=== PATIENT | female | born 1985 | race African-American/Black ===

== ENCOUNTER 2016-11-06 20:28 | Emergency (ER) | payer SELFPAY ==
[2016-11-06 20:47] VITALS: BP 111/69; PULSE 72; TEMP 99.1; BMI 36.6
--- NOTE | 2016-11-06 21:42 | PDOC ---
History of Present Illness - General Chief Complaint: Nausea/Vomiting Stated Complaint: PAIN /VOMITING Time Seen by Provider: 11/06/16 21:42 - History of Present Illness Initial Comments: 11/06/16 23:01 Patient is a 31-year-old female with a past medical history of gastritis who presents to the emergency department today complaining of nausea and vomiting since 8 AM this morning. Patient states that she felt nauseous early this morning and has not been able to stop throwing up since. She's not been able to keep any food or water down. She has not used any medication for pain. Denies fevers, chills. Admits to diarrhea. Denies chest pain, shortness of breath, frequency, urgency, hematuria, constipation, hematochezia, melena. Patient admits to occasional marijuana use with her last usage of last night. Patient states her last menstrual period was 3 weeks ago. Past History - Travel Traveled outside of the country in the last 30 days: No Close contact w/someone who was outside of country & ill: No - Past Medical History Allergies/Adverse Reactions: Allergies Allergy/AdvReac Type Severity Reaction Status Date / Time Penicillins Allergy Mild "SKIN Verified 11/06/16 20:45 PEELS". Home Medications: Ambulatory Orders Ondansetron [Zofran Odt -] 4 mg SL TID PRN #9 od.tablet 05/05/16 Suicide Attempt (Hx): No - Psycho/Social/Smoking Cessation Hx Anxiety: No Suicidal Ideation: No Smoking History: Never smoked Have you smoked in the past 12 months: No Hx Alcohol Use: Yes (binge drinking x 4 days earlier this week) Drug/Substance Use Hx: No Substance Use Type: None Hx Substance Use Treatment: No Review of Systems - Review of Systems Able to Perform ROS?: Yes Comments:: 11/06/16 23:53 CONSTITUTIONAL: Absent: fever, chills, diaphoresis, generalized weakness, malaise, loss of appetite HEENT: Absent: rhinorrhea, nasal congestion, throat pain, throat swelling, difficulty swallowing, mouth swelling, ear pain, eye pain, visual Changes CARDIOVASCULAR: Absent: chest pain, loss of consciousness, palpitations, irregular heart rate, peripheral edema RESPIRATORY: Absent: cough, shortness of breath, dyspnea with exertion, orthopnea, wheezing, stridor, hemoptysis GASTROINTESTINAL: Positive: diffuse abdominal pain, nausea, vomiting, diarrhea. Absent: abdominal distension, constipation, melena, hematochezia GENITOURINARY: Absent: dysuria, frequency, urgency, hesitancy, hematuria, flank pain, genital pain MUSCULOSKELETAL: Absent: myalgia, arthralgia, joint swelling SKIN: Absent: rash, itching, pallor HEMATOLOGIC/IMMUNOLOGIC: Absent: easy bleeding, easy bruising, lymphadenopathy, frequent infections ENDOCRINE: Absent: unexplained weight gain, unexplained weight loss, heat intolerance, cold intolerance NEUROLOGIC: Absent: headache, focal weakness or paresthesias, dizziness, unsteady gait, seizure, mental status changes, bladder or bowel incontinence PSYCHIATRIC: Absent: anxiety, depression, suicidal or homicidal ideation, hallucinations. Is the patient limited Barbadian proficient: No *Physical Exam - Vital Signs Last Vital Signs Temp Pulse Resp BP Pulse Ox 99.1 F 72 20 111/69 100 11/06/16 20:45 11/06/16 20:45 11/06/16 20:45 11/06/16 20:45 11/06/16 20:45 - Physical Exam Comments: 11/06/16 23:55 GENERAL: Well developed, well nourished. AAOx3. In mild distress, laying on exam bed c/o abd pain. NECK: Supple. Full ROM. No JVD. Carotid pulses 2+ and symmetric, without bruits. No thyromegaly. No lymphadenopathy. CARDIOVASCULAR: Regular rate and rhythm. No murmurs, rubs, or gallops. Distal pulses are 2+ and symmetric. PULMONARY: No evidence of respiratory distress. Lungs clear to auscultation bilaterally. No wheezing, rales or rhonchi. ABDOMINAL: Diffuse abdominal tenderness. Soft. Non-distended. No rebound or guarding. No organomegaly. Normoactive bowel sounds. MUSCULOSKELETAL Normal range of motion at all joints. No bony deformities or tenderness. No CVA tenderness. EXTREMITIES: No cyanosis. No clubbing. No edema. No calf tenderness. SKIN: Warm and dry. Normal capillary refill. No rashes. No jaundice. NEUROLOGICAL: Alert, awake, appropriate. Cranial nerves 2-12 intact. No deficits to light touch and temperature in face, upper extremities and lower extremities. No motor deficits in the in face, upper extremities and lower extremities. Normoreflexic in the upper and lower extremities. Normal speech. Toes are down- going bilaterally. Gait is normal without ataxia. PSYCHIATRIC: Cooperative. Good eye contact. Appropriate mood and affect. ED Treatment Course - LABORATORY CBC & Chemistry Diagram: 11/06/16 22:00 11/06/16 22:00 Medical Decision Making - Medical Decision Making 11/06/16 23:59 Patient is a 31-year-old female with a past medical history of gastritis who presents to the emergency department today complaining of nausea and vomiting since 8 AM this morning. Given her physical exam belly seems benign and most likely tender due to her constant vomiting since this morning. Differentials include gastritis, cyclic vomiting due to marijuana, gastroenteritis. 1.CBC, CMP, UA, UC, urine , U tox, lipase, PT/INR 2.IV fluids, ofirmev, IV Pepcid, IV Zofran 3.reevaluate 11/07/16 01:39 Patient is still complaining of pain. However urine is not back yet. Cannot prescribe anything stronger for pain until comes back. We'll prescribe Zofran for nausea as patient is still vomiting. 11/07/16 02:49 Urine is negative at this time. We will give 4 of IV morphine for continued pain. Patient is still vomiting we'll give one last dose of Zofran. Potassium is low at 3.4, will replete. Second bag of IV fluids Reevaluate 11/07/16 03:39 Patient appears to be resting comfortably at this time. 11/07/16 04:48 Patient states she feels much better at this time denies abdominal pain we'll by mouth trial at this time. 11/07/16 05:56 Patient tolerates by mouth trial. Did not vomit or c/o nausea/abd pain. We will discharge home at this time. Patient is to take Zantac twice a day for the next week to help with her symptoms. She was also counseled to avoid marijuana. She' s drink plenty of fluids and eat a bland diet. Patient understands all discharge instructions and all questions were answered at this time. *DC/Admit/Observation/Transfer Diagnosis at time of Disposition: Gastritis Qualifiers: Gastritis type: unspecified gastritis Chronicity: acute Gastritis bleeding: without bleeding Qualified Code(s): K29.00 - Acute gastritis without bleeding - Discharge Dispostion Admit: No - Referrals Referrals: Kwabena Owen MD [Staff Physician] - - Patient Instructions Printed Discharge Instructions: DI for Vomiting -- Adult, DI for Gastritis Additional Instructions: You had an episode of vomiting tonight most likely due to gastritis. Take Zantac twice a day for the next week. This medication is over the counter. Drink plenty of fluids and eat a bland diet for the next 48 hours or until your symptoms resolve. Avoid marijuana as this can cause nausea and vomiting. Follow up with your primary care doctor in the next week. Return to the ED if you have worsening vomiting, nausea, fevers, chills, or any changes in your symptoms. - Post Discharge Activity Work/School Note: Back to Work
[2016-11-06] MEDS ORDERED: ONDANSETRON 4 MG/2 ML VIAL IVPUSH ONE ×2 (21:59→23:58)
[2016-11-06] MEDS ORDERED: SODIUM CHLORIDE 1,000 ML IV STA (21:59)
[2016-11-06] MEDS ORDERED: KETOROLAC TROMETHAMINE 30 MG/1 ML VIAL IVPUSH ONE (22:00)
[2016-11-06] MEDS ORDERED: FAMOTIDINE 20 MG/50 ML IVPB 50 ML IVPB ONE ×2 (22:00→22:29)
[2016-11-06 22:26] LABS: BASOPHIL 0.3 % (0-2.0); MCHC 33.2 g/dl (32.0-36.0); MEAN CELL VOLUME 93.3 fl (80-96); MEAN PLT VOLUME 6.5 fl (7.5-11.1); NEUTROPHILS 91.7 % (42.8-82.8); PLATELET COUNT 313 K/MM3 (134-434); RDW 13.4 % (11.6-15.6); WHITE BLOOD COUNT 10.6 K/mm3 (4.0-10.0)
[2016-11-06] MEDS ORDERED: ONDANSETRON 4 MG/2 ML VIAL ONE (22:29)
[2016-11-06] MEDS ORDERED: KETOROLAC TROMETHAMINE 30 MG/1 ML VIAL ONE (22:29)
[2016-11-06 22:44] LABS: INR 1.18 (0.82-1.09)
[2016-11-06 22:58] LABS: ALBUMIN 4.6 g/dl (3.4-5.0); ALK PHOS 93 U/L (45-117); ANION GAP 11 (8-16); BILIRUBIN,TOTAL 0.3 mg/dL (0.2-1.0); CALCIUM 9.8 mg/dL (8.5-10.1); CO2 23 mmol/L (21-32); CREATININE 0.8 mg/dL (0.55-1.02); GLUCOSE,RANDOM 134 mg/dL (74-106); SGOT/AST 16 U/L (15-37); SGPT/ALT 22 U/L (12-78); TOT PROT 7.7 g/dl (6.4-8.2)
[2016-11-06 23:19] LABS: URINE APPEARANCE CLOUDY; URINE BILIRUBIN NEGATIVE (NEGATIVE); URINE BLOOD NEGATIVE (NEGATIVE); URINE COLOR YELLOW; URINE GLUCOSE (UA) NEGATIVE (NEGATIVE); URINE KETONE 1+ (NEGATIVE); URINE NITRITE NEGATIVE (NEGATIVE); URINE UROBILINOGEN NEGATIVE mg/dL (0.2-1.0)
[2016-11-06] MEDS ORDERED: ACETAMINOPHEN 1000 MG/100 ML VIAL (NON FORMULARY) IVPB ONE (23:57)
[2016-11-06 23:58] LABS: URINE LEUK ESTERASE 1+ (NEGATIVE); URINE PROTEIN 2+ (NEGATIVE)
[2016-11-07] MEDS ORDERED: ACETAMINOPHEN INJECTION 100 ML IVPB ONE (00:33)
[2016-11-07] MEDS ORDERED: ONDANSETRON 4 MG/2 ML VIAL ONE (00:34)
[2016-11-07 00:50] LABS: URINE MARIJUANA THC POSITIVE ng/ml (CUTOFF=50)
--- NOTE | 2016-11-07 01:24 | PDOC ---
*Physical Exam - Vital Signs Last Vital Signs Temp Pulse Resp BP Pulse Ox 99.1 F 72 20 111/69 100 11/06/16 20:45 11/06/16 20:45 11/06/16 20:45 11/06/16 20:45 11/06/16 20:45 ED Treatment Course - LABORATORY CBC & Chemistry Diagram: 11/06/16 22:00 11/06/16 22:00 - ADDITIONAL ORDERS Additional order review: Laboratory Results 11/07/16 11/06/16 11/06/16 00:20 23:00 22:00 INR Sodium Potassium Chloride Carbon Dioxide Anion Gap BUN Creatinine Creat Clearance w eGFR Random Glucose Calcium Total Bilirubin AST ALT Alkaline Phosphatase Total Protein Albumin Lipase 244 Urine Color Yellow Urine Appearance Cloudy Urine pH 8.0 Urine Protein 2+ H Urine Glucose (UA) Negative Urine Ketones 1+ H Urine Blood Negative Urine Nitrite Negative Urine Bilirubin Negative Urine Urobilinogen Negative Ur Leukocyte Esterase 1+ H Opiates Screen Negative Methadone Screen Negative Barbiturate Screen Negative Phencyclidine Screen Negative Ur Amphetamines Screen Negative MDMA (Ecstasy) Screen Negative Benzodiazepines Screen Negative Cocaine Screen Negative U Marijuana (THC) Screen Positive 11/06/16 11/06/16 22:00 22:00 INR 1.18 H Sodium 142 Potassium 3.4 L Chloride 108 H Carbon Dioxide 23 Anion Gap 11 BUN 8 Creatinine 0.8 Creat Clearance w eGFR > 60 Random Glucose 134 H Calcium 9.8 Total Bilirubin 0.3 AST 16 D ALT 22 Alkaline Phosphatase 93 Total Protein 7.7 Albumin 4.6 Lipase Urine Color Urine Appearance Urine pH Urine Protein Urine Glucose (UA) Urine Ketones Urine Blood Urine Nitrite Urine Bilirubin Urine Urobilinogen Ur Leukocyte Esterase Opiates Screen Methadone Screen Barbiturate Screen Phencyclidine Screen Ur Amphetamines Screen MDMA (Ecstasy) Screen Benzodiazepines Screen Cocaine Screen U Marijuana (THC) Screen 11/06/16 22:00 RBC 4.17 MCV 93.3 MCHC 33.2 RDW 13.4 MPV 6.5 L Neutrophils % 91.7 H Lymphocytes % 5.2 L D Monocytes % 2.8 L Eosinophils % 0.0 D Basophils % 0.3 - Medications Given in the ED: ED Medications Discontinued Medications Generic Name Dose Route Start Last Admin Trade Name Freq PRN Reason Stop Dose Admin Acetaminophen 1,000 mg 11/06/16 23:57 11/07/16 00:39 Ofirmev Injection - IVPB 11/06/16 23:58 1,000 mg ONCE ONE Administration Famotidine/Sodium Chloride 50 mls @ 100 mls/hr 11/06/16 22:00 11/06/16 23:09 Pepcid 20 Mg Premixed Ivpb - IVPB 11/06/16 22:29 100 mls/hr ONCE ONE Administration Sodium Chloride 1,000 mls @ 1,000 mls/hr 11/06/16 21:59 11/06/16 23:09 Normal Saline - IV 11/06/16 22:58 1,000 mls/hr ASDIR STA Administration Ketorolac Tromethamine 30 mg 11/06/16 22:00 11/06/16 23:09 Toradol Injection - IVPUSH 11/06/16 22:01 30 mg ONCE ONE Administration Ondansetron HCl 4 mg 11/06/16 21:59 11/06/16 23:09 Zofran Injection IVPUSH 11/06/16 22:00 4 mg ONCE ONE Administration Ondansetron HCl 4 mg 11/06/16 23:58 11/07/16 00:39 Zofran Injection IVPUSH 11/06/16 23:59 4 mg ONCE ONE Administration Medical Decision Making - Medical Decision Making 11/07/16 01:23 agree with care from TOÑA Jerez *DC/Admit/Observation/Transfer Diagnosis at time of Disposition: Gastritis - Referrals Referrals: Kwabena Owen MD [Staff Physician] - - Patient Instructions Printed Discharge Instructions: DI for Gastritis, DI for Vomiting -- Adult Additional Instructions: You had an episode of vomiting tonight most likely due to gastritis. Take Zantac twice a day for the next week. This medication is over the counter. Drink plenty of fluids and eat a bland diet for the next 48 hours or until your symptoms resolve. Avoid marijuana as this can cause nausea and vomiting. Follow up with your primary care doctor in the next week. Return to the ED if you have worsening vomiting, nausea, fevers, chills, or any changes in your symptoms. - Post Discharge Activity Work/School Note: Back to Work
[2016-11-07] MEDS ORDERED: morphine CARPU-JECT 4 MG/1 ML DISP.SYRIN IVPUSH ONE (01:54)
[2016-11-07] MEDS ORDERED: POTASSIUM CHLORIDE 20 MEQ PREMIX IVPB 100 ML IVPB ONE (01:54)
[2016-11-07 02:24] LABS: URINE BACTERIA RARE /hpf (NONE SEEN); URINE MUCUS MANY; URINE RBC 8 /hpf (0-3); URINE WBC 4 /hpf (3-5)
[2016-11-07] MEDS ORDERED: KCL 10 MEQ IVPB 200 ML IVPB ONE (02:35)
[2016-11-07] MEDS ORDERED: morphine CARPU-JECT 4 MG/1 ML DISP.SYRIN ONE (02:35)
== END 2016-11-07 06:04 | disposition home or self-care (01) ==
LOC: JER 20:28
PROC: 3E033GC Introduction of Other Therapeutic Substance into Peripheral Vein, Percutaneous Approach (ICD-10-PCS; principal; 2016-11-06)
PROC: 3E033NZ Introduction of Analgesics, Hypnotics, Sedatives into Peripheral Vein, Percutaneous Approach (ICD-10-PCS; 2016-11-06)
PROC: 3E033NZ Introduction of Analgesics, Hypnotics, Sedatives into Peripheral Vein, Percutaneous Approach (ICD-10-PCS; 2016-11-06)
PROC: 3E033GC Introduction of Other Therapeutic Substance into Peripheral Vein, Percutaneous Approach (ICD-10-PCS; 2016-11-06)
PROC: 3E0333Z Introduction of Anti-inflammatory into Peripheral Vein, Percutaneous Approach (ICD-10-PCS; 2016-11-06)
PROC: 3E0337Z Introduction of Electrolytic and Water Balance Substance into Peripheral Vein, Percutaneous Approach (ICD-10-PCS; 2016-11-06)
DX: K29.00 Acute gastritis without bleeding (principal); F12.10 Cannabis abuse, uncomplicated
CPT/HCPCS: 36415; 80053; 80307; 81003; 81015; 83690; 84703; 85025; 85610; 87086; 99283-25

== ENCOUNTER 2017-12-04 16:56 | Emergency (ER) | payer SELFPAY ==
--- NOTE | 2017-12-04 17:04 | PDOC ---
Rapid Medical Evaluation Time Seen by Provider: 12/04/17 17:02 Medical Evaluation: Allergies Allergy/AdvReac Type Severity Reaction Status Date / Time Penicillins Allergy Mild "SKIN Verified 12/04/17 17:02 SEAN". I have performed a brief in-person evaluation of this patient. The patient presents with a chief complaint of: 4 weeks vaginal bleeding today Pertinent physical exam findings: none I have ordered the following: labs, UA/culture, transvaginal ultrasound The patient will proceed to the ED for further evaluation. Discharge Disposition - Diagnosis Vaginal bleeding affecting early - Referrals - Patient Instructions - Post Discharge Activity
[2017-12-04 17:07] VITALS: BMI 34.7
[2017-12-04 17:52] LABS: BASO % 0.8 % (0-2.0); EOS % 0.9 % (0-4.5); HEMATOCRIT 36.4 % (32.4-45.2); HEMOGLOBIN 12.4 GM/dL (10.7-15.3); LYMPH % 28.2 % (8-40); MCHC 34.1 g/dl (32.0-36.0); MEAN CELL VOLUME 96.6 fl (80-96); MEAN PLT VOLUME 6.6 fl (7.5-11.1); MONO % 8.4 % (3.8-10.2); NEUT % 61.7 % (42.8-82.8); PLATELET COUNT 276 K/MM3 (134-434); RBC 3.77 M/mm3 (3.60-5.2); RDW 13.2 % (11.6-15.6)
[2017-12-04 18:08] LABS: URINE APPEARANCE CLOUDY; URINE BILIRUBIN NEGATIVE (<2.0 mg/dL); URINE COLOR RED; URINE GLUCOSE (UA) NEGATIVE (NEGATIVE); URINE KETONE NEGATIVE (NEGATIVE); URINE LEUK ESTERASE NEGATIVE (NEGATIVE); URINE NITRITE NEGATIVE (NEGATIVE); URINE UROBILINOGEN NEGATIVE mg/dL (0.2-1.0)
[2017-12-04 18:14] LABS: ALBUMIN 4.1 g/dl (3.4-5.0); ANION GAP 9 MMOL/L (8-16); BILIRUBIN,TOTAL 0.3 mg/dL (0.2-1.0); BLOOD UREA NITROGEN 5 mg/dL (7-18); CALCIUM 8.8 mg/dL (8.5-10.1); CHLORIDE 108 mmol/L (98-107); CO2 24 mmol/L (21-32); CREATININE 0.6 mg/dL (0.55-1.02); GLUCOSE,RANDOM 80 mg/dL (74-106); POTASSIUM 3.7 mmol/L (3.5-5.1); SGOT/AST 14 U/L (15-37); SGPT/ALT 22 U/L (12-78); SODIUM 141 mmol/L (136-145); TOT PROT 6.8 g/dl (6.4-8.2)
[2017-12-04 18:15] LABS: ALK PHOS 72 U/L (45-117)
[2017-12-04 18:20] LABS: URINE PROTEIN 2+ (NEGATIVE)
[2017-12-04 18:22] LABS: EPI CELLS RARE /HPF (FEW)
[2017-12-04 18:27] LABS: HCG,QUALITATIVE URINE Positive
--- NOTE | 2017-12-04 19:33 | PDOC ---
Attending Attestation - HPI HPI: 12/04/17 20:38 The patient is a 32-year-old female (4-5 weeks , ) with significant past medical history of gastritis, who presents to the emergency department today complaining of moderate bright red vaginal bleeding and associated lower abdominal cramping. Denies urinary/bowel changes. Denies fever, chills, nausea, vomiting, diarrhea, constipation. Denies headache, dizziness. Denies shortness of breath, back pain, chest pain. Allergies: penicillins Social history: none reported Surgical history: back abscess Family history: none reported PCP: unknown - Physicial Exam PE: 12/04/17 20:40 Vitals: Triage vital signs reviewed General Appearance: No acute distress, well nourished, well developed Head: Atraumatic Neck: Supple; No nuchal rigidity Chest Wall: Nontender Cardiac: Regular rate and rhythm, no murmurs, no rubs, no gallops Lungs: Clear to auscultation bilateral, good air movement bilaterally Abdomen: Soft, nondistended, normal bowel sounds, nontender to palpation Rectal: Exam deferred Extremities: Full range of motion to all extremities, no cyanosis, clubbing, or edema Skin: Warm and dry, no rashes or lesions, no rash, no petechiae Psych: Normal mood, normal affect <Viviana Mauricio - Last Filed: 12/04/17 23:17> - Resident Resident Name: Marielos Ogden - ED Attending Attestation I have performed the following: I have examined & evaluated the patient, The case was reviewed & discussed with the resident, I agree w/resident's findings & plan, Exceptions are as noted - Medical Decision Making 12/05/17 01:22 4 weeks . Undetectable IUP on ultrasound very low beta hCG differential diagnosis includes early miscarriage versus very early possible ectopic given no significant abdominal pain low suspicion for ectopic however patient advised return to ED or follow-up with [facility] for repeat beta and ultrasound in 2 days Very strict return instructions return instructions discussed with patient <Quentin Knox - Last Filed: 12/05/17 01:22> Attestations - Attestations 12/04/17 20:41 Documentation prepared by Viviana Mauricio, acting as medical esthetician for Quentin Knox MD. <Viviana Mauricio - Last Filed: 12/04/17 23:17> ED Treatment Course - LABORATORY CBC & Chemistry Diagram: 12/04/17 17:40 12/04/17 17:40 - ADDITIONAL ORDERS Additional order review: Laboratory Results 12/04/17 12/04/17 12/04/17 18:00 17:40 17:40 Sodium Potassium Chloride Carbon Dioxide Anion Gap BUN Creatinine Creat Clearance w eGFR Random Glucose Calcium Total Bilirubin AST ALT Alkaline Phosphatase Total Protein Albumin Beta HCG, Quant 143.0 Urine Color Red Urine Appearance Cloudy Urine pH 6.0 Ur Specific [place] 1.012 Urine Protein 2+ H Urine Glucose (UA) Negative Urine Ketones Negative Urine Blood 3+ H Urine Nitrite Negative Urine Bilirubin Negative Urine Urobilinogen Negative Ur Leukocyte Esterase Negative Urine WBC (Auto) 336 Urine RBC (Auto) 5042 Ur Epithelial Cells Rare Urine HCG, Qual Positive Blood Type AB POSITIVE Antibody Screen Negative 12/04/17 17:40 Sodium 141 Potassium 3.7 Chloride 108 H Carbon Dioxide 24 Anion Gap 9 BUN 5 L Creatinine 0.6 Creat Clearance w eGFR > 60 Random Glucose 80 Calcium 8.8 Total Bilirubin 0.3 AST 14 L ALT 22 Alkaline Phosphatase 72 D Total Protein 6.8 Albumin 4.1 Beta HCG, Quant Urine Color Urine Appearance Urine pH Ur Specific [place] Urine Protein Urine Glucose (UA) Urine Ketones Urine Blood Urine Nitrite Urine Bilirubin Urine Urobilinogen Ur Leukocyte Esterase Urine WBC (Auto) Urine RBC (Auto) Ur Epithelial Cells Urine HCG, Qual Blood Type Antibody Screen 12/04/17 17:40 RBC 3.77 MCV 96.6 H MCHC 34.1 RDW 13.2 MPV 6.6 L Neutrophils % 61.7 D Lymphocytes % 28.2 D Monocytes % 8.4 Eosinophils % 0.9 D Basophils % 0.8 - RADIOLOGY Radiograph Interpretation: 12/04/17 23:17 Transvaginal ultrasound was reviewed by Dr. Knox and overread by Radiology. Impression: No intrauterine gestational sac is identified. Endometrial stripe measures 1 cm in thickness with heterogeneous echotexture and vascular flow. Please correlate clinically and correlate with beta hCG levels as well as close follow-up ultrasound is needed to rule early versus missed in view of the clinical history. Right ovarian simple cyst/corpus luteum cyst measuring 2. 2 x 2 CM <Viviana Mauricio - Last Filed: 12/04/17 23:17> - LABORATORY CBC & Chemistry Diagram: 12/04/17 17:40 12/04/17 17:40 <Quentin Knox - Last Filed: 12/05/17 01:22>
--- NOTE | 2017-12-04 20:30 | PDOC ---
History of Present Illness - General Chief Complaint: Vaginal Bleeding Stated Complaint: VAGINAL BLEEDING Time Seen by Provider: 12/04/17 17:02 History Source: Patient Exam Limitations: No Limitations - History of Present Illness Initial Comments: Pt, with PMH of gastritis (treated with OTC antacid), presents with vaginal spotting since this morning. Pt went on multiple interviews today, and when she returned home around 5 pm, she noticed heavy vaginal bleeding and passage of a large clot. The passage of clot was associated with mild lower abdominal cramping. She has bled through about 1 pad every 2 hours. Her LMP was ~October 29- (~5 weeks by approximation). She has never been before. She denies any fevers or chills, foul-smelling or unusual vaginal discharge. She is currently having vaginal bleeding, but only complains of mild abdominal pain. 12/05/17 00:39 12/05/17 16:16 Past History - Travel Traveled outside of the country in the last 30 days: No Close contact w/someone who was outside of country & ill: No - Past Medical History Allergies/Adverse Reactions: Allergies Allergy/AdvReac Type Severity Reaction Status Date / Time Penicillins Allergy Mild "SKIN Verified 12/04/17 17:02 PEELS". Home Medications: Ambulatory Orders Nitrofurantoin Monohyd/M-Cryst [Macrobid -] 100 mg PO BID 5 Days #10 capsule CVA: No COPD: No DVT: No GI Disorders: Yes (GASTRITIS) - Reproductive History LMP comment: ~October 29-"early 20s" LMP Normal: Yes Is Patient Now?: Yes (#): 1 Para: 0 Therapeutic (s) & number: No Spontaneous : 0 - Suicide/Smoking/Psychosocial Hx Smoking History: Never smoked Have you smoked in the past 12 months: No Information on smoking cessation initiated: No Hx Alcohol Use: No Drug/Substance Use Hx: No Substance Use Type: None Hx Substance Use Treatment: No Review of Systems - Review of Systems Able to Perform ROS?: Yes Is the patient limited Kyrgyz proficient: No Constitutional: Yes: Weight Stable. No: Chills, Diaphoresis, Fever, Loss of Appetite, Weakness HEENTM: No: Recent change in vision, Nose Congestion, Throat Pain, Difficulty Swallowing Respiratory: No: Cough, Orthopnea, Shortness of Breath, Wheezing Cardiac (ROS): No: Chest Pain, Edema, Irregular Heart Rate, Lightheadedness, Palpitations, Syncope, Chest Tightness ABD/GI: Yes: Abdominal cramping (abdominal cramping and pain with passage of clot). No: Blood Streaked Bowels, Constipated, Diarrhea, Difficulty Swallowing , Nausea, Poor Appetite, Poor Fluid Intake, Vomiting : No: Burning, Dysuria, Discharge, Frequency, Flank Pain, Hematuria, Incontinence, Pain, Urgency Musculoskeletal: No: Back Pain, Joint Pain, Muscle Pain, Muscle Weakness Integumentary: No: Erythema, Pruritus, Rash Neurological: No: Headache, Numbness, Paresthesia, Seizure, Weakness, Unsteady Gait, Ataxia, Dizziness Psychiatric: No: Sleep Pattern Change, Change in Appetite Endocrine: No: Increased Urine, Change in Weight Hematologic/Lymphatic: Yes: Blood Clots (passage of vaginal clots). No: Anemia , Easy Bleeding All Other Systems: Reviewed and Negative *Physical Exam - Vital Signs Last Vital Signs Temp Pulse Resp BP Pulse Ox 98.3 F 75 18 118/75 100 12/04/17 17:03 12/04/17 17:03 12/04/17 17:03 12/04/17 17:03 12/04/17 17:03 - Physical Exam General Appearance: Yes: Nourished, Appropriately Dressed. No: Apparent Distress HEENT: positive: EOMI, FABRICIO, Normal ENT Inspection, Normal Voice, Pharynx Normal , Hearing Grossly Normal. negative: Scleral Icterus (R), Scleral Icterus (L), Pharyngeal Erythema, Tonsillar Exudate, Tonsillar Erythema, Rhinorrhea Neck: positive: Trachea midline, Normal Thyroid, Supple. negative: Tender, Rigid, Stridor, Lymphadenopathy (R), Lymphadenopathy (L) Respiratory/Chest: positive: Lungs Clear, Normal Breath Sounds. negative: Chest Tender, Respiratory Distress, Accessory Muscle Use Cardiovascular: positive: Regular Rhythm, Regular Rate, S1, S2. negative: Edema , JVD, Murmur Vascular Pulses: Carotid (R): 4+, Carotid (L): 4+ Female Pelvic Exam: positive: normal external exam, vaginal bleeding (heavy vaginal bleeding with passage of small clots. Was unable to visualize cervical os due to bleeding in the vaginal canal. Dark red blood.). negative: CMT, discharge, Bartholin mass, adnexal tenderness Gastrointestinal/Abdominal: positive: Normal Bowel Sounds, Tender (mild suprapubic tenderness to palpation. No rebound, no guarding. ), Flat (fundal height not yet palpated. below level of umbilicus. ), Soft. negative: Organomegaly, Pulsatile Mass, Distended, Guarding, Rebound Rectal Exam: positive: deferred Lymphatic: negative: Adenopathy, Tenderness Musculoskeletal: positive: Normal Inspection. negative: CVA Tenderness Extremity: positive: Normal Capillary Refill, Normal Inspection, Normal Range of Motion, Pelvis Stable. negative: Tender, Delayed Capillary Refill, Pedal Edema, Calf Tenderness Integumentary: positive: Normal Color, Dry, Warm. 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 NML intact, Fully Oriented, Alert, Normal Mood/ Affect, Normal Response, Motor Strength 08/16 ED Treatment Course - LABORATORY CBC & Chemistry Diagram: 12/04/17 17:40 12/04/17 17:40 - ADDITIONAL ORDERS Additional order review: Laboratory Results 12/04/17 12/04/17 12/04/17 18:00 17:40 17:40 Sodium Potassium Chloride Carbon Dioxide Anion Gap BUN Creatinine Creat Clearance w eGFR Random Glucose Calcium Total Bilirubin AST ALT Alkaline Phosphatase Total Protein Albumin Beta HCG, Quant 143.0 Urine Color Red Urine Appearance Cloudy Urine pH 6.0 Ur Specific [place] 1.012 Urine Protein 2+ H Urine Glucose (UA) Negative Urine Ketones Negative Urine Blood 3+ H Urine Nitrite Negative Urine Bilirubin Negative Urine Urobilinogen Negative Ur Leukocyte Esterase Negative Urine WBC (Auto) 336 Urine RBC (Auto) 5042 Ur Epithelial Cells Rare Urine HCG, Qual Positive Blood Type AB POSITIVE Antibody Screen Negative 12/04/17 17:40 Sodium 141 Potassium 3.7 Chloride 108 H Carbon Dioxide 24 Anion Gap 9 BUN 5 L Creatinine 0.6 Creat Clearance w eGFR > 60 Random Glucose 80 Calcium 8.8 Total Bilirubin 0.3 AST 14 L ALT 22 Alkaline Phosphatase 72 D Total Protein 6.8 Albumin 4.1 Beta HCG, Quant Urine Color Urine Appearance Urine pH Ur Specific [place] Urine Protein Urine Glucose (UA) Urine Ketones Urine Blood Urine Nitrite Urine Bilirubin Urine Urobilinogen Ur Leukocyte Esterase Urine WBC (Auto) Urine RBC (Auto) Ur Epithelial Cells Urine HCG, Qual Blood Type Antibody Screen 12/04/17 17:40 RBC 3.77 MCV 96.6 H MCHC 34.1 RDW 13.2 MPV 6.6 L Neutrophils % 61.7 D Lymphocytes % 28.2 D Monocytes % 8.4 Eosinophils % 0.9 D Basophils % 0.8 Medical Decision Making - Medical Decision Making [id number] US/TRANSVAGINAL US PREG 4 weeks . Heavy vaginal bleeding with clots. Pelvis ultrasound, transvesical and transvaginal LMP is unknown. The uterus measures 8.6 x 4.5 cm in sagittal and AP dimension. Endometrial stripe measures 10 mm in thickness. No intrauterine gestational sac is identified. Right ovary measures 4.5 x 2.2 cm with a simple cyst/corpus luteum cyst measuring 2.2 x 2 cm. Duplex evaluation of both ovaries demonstrates vascular flow, likely venous. No definite arterial flow could be documented. There is no free fluid in the cul-de-sac. Impression: No intrauterine gestational sac is identified. Endometrial stripe measures 1 cm in thickness with heterogeneous echotexture and vascular flow. Please correlate clinically and correlate with beta hCG levels as well as close follow-up ultrasound is needed to rule early versus missed in view of the clinical history. Right ovarian simple cyst/corpus luteum cyst measuring 2. 2 x 2 CM 12/04/17 19:50 (entered later) Pt seen at bedside, also seen by Dr. Knox. US did not visualize any intrauterine sac. Beta-hcg (143) very low considering LMP. Cervical os could not be visualized during exam due to vaginal bleeding. Pt also had mild suprapubic pain and cramping. Likely miscarriage vs early ectopic vs early with vaginal bleeding. UA showed WBC, leuk esterase and nitrite negative, not contaminated. Sent Macrobid 100 mg PO BID x5 days to treat UTI. Pt provided strict return precautions and provided referral for OB follow-up within 2 days to trend beta levels. Provided pt a copy of her US to take to her appointment. 12/04/17 20:30 12/05/17 16:48 *DC/Admit/Observation/Transfer Diagnosis at time of Disposition: Vaginal bleeding affecting early - Discharge Dispostion Disposition: HOME Condition at time of disposition: Stable Decision to Admit order: No - Prescriptions Prescriptions: Nitrofurantoin Monohyd/M-Cryst [Macrobid -] 100 mg PO BID 5 Days #10 capsule - Referrals Referrals: Alex Long MD [Staff Physician] - - Patient Instructions Printed Discharge Instructions: DI for Vaginal Bleeding During Additional Instructions: You were seen in the ER today for vaginal bleeding. The Ultrasound did not yet show any intrauterine . It is too early to tell whether you have had a miscarriage or if it too early to see a . The beta-hcg level today was 143. Please follow-up with your OB doctor tomorrow to make an appointment. We will have to follow your beta-hcg levels to determine if you are currently . Please return if you have worsening abdominal pain or worsening bleeding, any passing out, develop fevers or chills, or any other concerns. - Post Discharge Activity
[2017-12-04 20:52] VITALS: BP 122/79; PULSE 90; TEMP 99.4
== END 2017-12-04 20:52 | disposition home or self-care (01) ==
LOC: JER 16:56
DX: O26.891 Other specified pregnancy related conditions, first trimester (principal); O20.8 Other hemorrhage in early pregnancy; O34.81 Maternal care for other abnormalities of pelvic organs, first trimester; N83.11 Corpus luteum cyst of right ovary; Z3A.01 Less than 8 weeks gestation of pregnancy
CPT/HCPCS: 36415; 76817-TC; 80053; 81003; 81015; 84702; 84703; 85025; 86850; 86900; 86901; 87086; 99283-25

== ENCOUNTER 2018-04-15 18:49 | Emergency (ER) | payer BC ==
[2018-04-15] MEDS ORDERED: ACETAMINOPHEN 500 MG TABLET (FP) PO ONE (19:03)
--- NOTE | 2018-04-15 19:03 | PDOC ---
Rapid Medical Evaluation Time Seen by Provider: 04/15/18 19:00 Medical Evaluation: Allergies Allergy/AdvReac Type Severity Reaction Status Date / Time Penicillins Allergy Mild "SKIN Verified 12/04/17 17:02 PEELS". 04/15/18 19:00 I have performed a brief in-person evaluation of this patient. The patient presents with a chief complaint of: atraumatic upper back pain Pertinent physical exam findings: 8wks by dates. Upper back TTP at insertion point of right trapezius. I have ordered the following: tylenol The patient will proceed to the ED for further evaluation. Discharge Disposition - Diagnosis Upper back pain on right side - Referrals - Patient Instructions - Post Discharge Activity
[2018-04-15 19:05] VITALS: BP 120/74; PULSE 80; TEMP 98.3; BMI 36.6
[2018-04-15] MEDS ORDERED: ACETAMINOPHEN 325 MG TABLET (FP) ONE (21:28)
--- NOTE | 2018-04-15 21:47 | PDOC ---
History of Present Illness - General Chief Complaint: Pain, Acute Stated Complaint: NECK/BACK PAIN/8 WKS Time Seen by Provider: 04/15/18 19:00 - History of Present Illness Initial Comments: 04/15/18 21:41 32-year-old female 2 months presents for evaluation of bilateral shoulder pain and neck pain 2 days without systemic symptoms. Past History - Past Medical History Allergies/Adverse Reactions: Allergies Allergy/AdvReac Type Severity Reaction Status Date / Time Penicillins Allergy Mild "SKIN Verified 12/04/17 17:02 PEELS". Home Medications: Ambulatory Orders NK [No Known Home Medication] 04/15/18 CVA: No COPD: No DVT: No GI Disorders: Yes (GASTRITIS) - Reproductive History (#): 1 Para: 0 Therapeutic (s) & number: No Spontaneous : 0 - Suicide/Smoking/Psychosocial Hx Smoking History: Never smoked Have you smoked in the past 12 months: No Information on smoking cessation initiated: No Hx Alcohol Use: No Drug/Substance Use Hx: Yes (MARIJUANA) Substance Use Type: None Hx Substance Use Treatment: No Review of Systems - Review of Systems Musculoskeletal: Yes: Neck Pain *Physical Exam - Vital Signs Last Vital Signs Temp Pulse Resp BP Pulse Ox 98.3 F 80 16 120/74 100 04/15/18 19:01 04/15/18 19:01 04/15/18 19:01 04/15/18 19:01 04/15/18 19:01 - Physical Exam Comments: 04/15/18 21:42 Cervical spine skin color temperature are normal range of motion is limited. There is tenderness at bilateral paracervical musculature moderate tenderness bilateral trapezium and levator scapula. No gross sensorimotor deficits in bilateral upper extremities she isn't able to tolerate a Spurling maneuver. She is neurovascularly intact. Moderate Sedation - Procedure Monitoring Vital Signs: Procedure Monitoring Vital Signs Temperature 98.3 F 04/15/18 19:01 Pulse Rate 80 04/15/18 19:01 Respiratory Rate 16 04/15/18 19:01 Blood Pressure 120/74 04/15/18 19:01 O2 Sat by Pulse Oximetry (%) 100 04/15/18 19:01 ED Treatment Course - Medications Given in the ED: ED Medications Discontinued Medications Generic Name Dose Route Start Last Admin Trade Name Freq PRN Reason Stop Dose Admin Acetaminophen 975 mg 04/15/18 19:03 04/15/18 21:39 Tylenol - PO 04/15/18 19:04 975 mg ONCE ONE Administration Medical Decision Making - Medical Decision Making 04/15/18 21:42 Due to only Tylenol for pain at this point. *DC/Admit/Observation/Transfer Diagnosis at time of Disposition: Upper back pain on right side - Discharge Dispostion Disposition: HOME Condition at time of disposition: Stable Decision to Admit order: No - Referrals Referrals: Rip Davis MD [Staff Physician] - - Patient Instructions Printed Discharge Instructions: DI for Cervical Muscle Strain Additional Instructions: Return to the emergency room should symptoms worsen or go unresolved. Because of your debility can safely take is Tylenol. Follow-up with spine surgery for further evaluation and treatment options. - Post Discharge Activity
== END 2018-04-15 21:56 | disposition home or self-care (01) ==
LOC: JERFT 18:49
DX: O26.891 Other specified pregnancy related conditions, first trimester (principal); Z3A.08 8 weeks gestation of pregnancy; K52.9 Noninfective gastroenteritis and colitis, unspecified; M54.9 Dorsalgia, unspecified
CPT/HCPCS: 99281-25

== ENCOUNTER 2018-05-27 19:50 | Emergency (ER) | payer BC ==
[2018-05-27 20:07] VITALS: BP 125/76; PULSE 91; TEMP 98.8; BMI 40.2
--- NOTE | 2018-05-27 20:09 | PDOC ---
History of Present Illness - General Stated Complaint: TOOTHACHE Time Seen by Provider: 05/27/18 20:01 - History of Present Illness Initial Comments: 05/27/18 20:04 Toothache x 3 days without systemic symptoms 15 weeks gravid Past History - Past Medical History Allergies/Adverse Reactions: Allergies Allergy/AdvReac Type Severity Reaction Status Date / Time Penicillins Allergy Mild "SKIN Verified 05/27/18 20:05 PEELS". Home Medications: Ambulatory Orders Clindamycin [Cleocin -] 300 mg PO Q6HPO #28 capsule 05/27/18 CVA: No COPD: No DVT: No GI Disorders: Yes (GASTRITIS) - Reproductive History (#): 1 Para: 0 Therapeutic (s) & number: No Spontaneous : 0 - Suicide/Smoking/Psychosocial Hx Smoking History: Never smoked Have you smoked in the past 12 months: No Hx Alcohol Use: No Drug/Substance Use Hx: Yes (MARIJUANA) Substance Use Type: None Hx Substance Use Treatment: No Review of Systems - Review of Systems HEENTM: Yes: Dental Problems *Physical Exam - Physical Exam Comments: 05/27/18 20:04 Impacted L lower molar with associated decay *DC/Admit/Observation/Transfer Diagnosis at time of Disposition: Toothache - Discharge Dispostion Disposition: HOME Condition at time of disposition: Stable Decision to Admit order: No - Referrals Referrals: [facility] [Outside] - Patient Instructions Printed Discharge Instructions: DI for Tooth Decay Additional Instructions: Please take the antibiotics as directed, Tylenol only for pain as directed. Follow up with urgent care dental in 1 day for futher evaluation and treatment. - Post Discharge Activity
== END 2018-05-27 20:25 | disposition home or self-care (01) ==
LOC: JERFT 19:50
DX: K08.89 Other specified disorders of teeth and supporting structures (principal)
CPT/HCPCS: 99281-25

== ENCOUNTER 2018-11-21 20:36 | Inpatient (IN) | payer BC ==
[2018-11-21] MEDS ORDERED: LACTATED RINGERS SOLUTION 500 ML IV ONE (22:15)
[2018-11-21] MEDS: LACTATED RINGERS SOLUTION 1,000 ML IV SCH (23:15)
[2018-11-21] MEDS ORDERED: BUTORPHANOL TARTRATE 1 MG/ML VIAL IVPB ONE (23:22)
[2018-11-21] MEDS ORDERED: PROMETHAZINE HCL 25 MG/1 ML VIAL IVPUSH ONE (23:22)
[2018-11-21] MEDS ORDERED: CLINDAMYCIN PHOSPHATE 600 MG/4 ML VIAL ONE (23:59)
[2018-11-22] MEDS ORDERED: CLINDAMYCIN 900 MG PREMIX IVPB 900 MG/50 ML BAG IVPB ONE
[2018-11-22 00:27] VITALS: BMI 49.4
[2018-11-22 00:28] LABS: BASO % 0.5 % (0-2.0); EOS % 0.6 % (0-4.5); HEMATOCRIT 37.2 % (32.4-45.2); HEMOGLOBIN 12.5 GM/dL (10.7-15.3); LYMPH % 14.8 % (8-40); MCHC 33.7 g/dl (32.0-36.0); MEAN CELL VOLUME 97.8 fl (80-96); MEAN PLT VOLUME 8.3 fl (7.5-11.1); NEUT % 73.1 % (42.8-82.8); PLATELET COUNT 198 K/MM3 (134-434); RDW 14.1 % (11.6-15.6); WHITE BLOOD COUNT 8.2 K/mm3 (4.0-10.0)
[2018-11-22] MEDS ORDERED: BUTORPHANOL TARTRATE 1 MG/ML VIAL ONE ×2 (00:29)
[2018-11-22] MEDS ORDERED: PROMETHAZINE HCL 25 MG/1 ML VIAL ONE (00:30)
[2018-11-22 00:56] LABS: CALCIUM 9.4 mg/dL (8.5-10.1); CREATININE 0.7 mg/dL (0.55-1.3); POTASSIUM 3.9 mmol/L (3.5-5.1); URIC ACID 2.9 mg/dL (2.6-7.2)
[2018-11-22 00:58] LABS: INR 0.97 (0.83-1.09); PROTHROMBIN TIME (PATIENT) 11.5 SEC (9.7-13.0)
[2018-11-22] MEDS: CLINDAMYCIN 600MG PREMIX IVPB 600 MG/50 ML BAG IVPB SCH ×3 (06:00→18:00)
[2018-11-22] MEDS ORDERED: CLINDAMYCIN 600MG PREMIX IVPB 600 MG/50 ML BAG IVPB SCH (06:00)
[2018-11-22] MEDS ORDERED: CLINDAMYCIN PHOSPHATE 600 MG/4 ML VIAL ONE ×4 (06:15→23:17)
[2018-11-22] MEDS: LACTATED RINGERS SOLUTION 1,000 ML IV SCH ×2 (09:55→18:45)
--- NOTE | 2018-11-22 10:14 | HP ---
Past Medical History - Admission Chief Complaint: painful contractions History of Present Illness: 33 y/o P0 female with SIUP at 39.5 weeks gestation here in labor. Pt admitted overnight with painful contractions, no LOF/VB. +FM. complicated by morbid obesity. Pt GBS positive. Has had edema of LE for several months, worsening over the past few days. HELLP labs/workup negative earlier in . Labs WNL upon admission except slighly elevated AST, UA pending. BPs mildly elevated earlier, improved now. Denies MONSON/RUQ pain/changes in vision. EFW 8lb 4oz on 11/06. History Source: Patient, Medical Record - Past Medical History Cardiovascular: Yes: HTN (mildly elevated BP since admission). No: AFIB Pulmonary: No: Asthma, COPD Gastrointestinal: No: GERD Hepatobiliary: No: Hepatitis B, Hepatitis C Renal/: No: UTI Reproductive: No: Fibroids, PID ...: 2 ...Para: 0 ...Term: 0 ...: 0 ...Spon : 1 ...Induced : 0 ...Multiple Gestation: 0 ...EDC by [facility]: 11/24/18 Heme/Onc: No: Anemia Psych: No: Anxiety, Bipolar, Depression - Past Surgical History Past Surgical History: Yes: None Hx Myomectomy: No Hx Transabdominal Cerclage: No - Smoking History Smoking history: Unknown if ever smoked Have you smoked in the past 12 months: No - Alcohol/Substance Use Hx Alcohol Use: No Number of Drinks Daily: 2 (10 mixed drinks total in 4 d) History of Substance Use: reports: Marijuana (daily) Date of Last Use: 10/04/14 - Social History ADL: Independent History of Recent Travel: No Home Medications - Allergies Allergies/Adverse Reactions: Allergies Allergy/AdvReac Type Severity Reaction Status Date / Time Penicillins Allergy Mild "SKIN Verified 11/06/18 10:34 PEELS". - Home Medications Home Medications: Ambulatory Orders Pnv No.95/Ferrous Fum/Folic AC [ Vitamin Tablet] 1 each PO DAILY Review of Systems - Review of Systems Constitutional: reports: No Symptoms Eyes: reports: No Symptoms HENT: reports: No Symptoms Neck: reports: No Symptoms Cardiovascular: reports: No Symptoms Respiratory: reports: No Symptoms Gastrointestinal: reports: No Symptoms Genitourinary: reports: No Symptoms. denies: Vaginal Bleeding Breasts: reports: No Symptoms Reported Musculoskeletal: reports: No Symptoms Integumentary: reports: No Symptoms Neurological: reports: No Symptoms Endocrine: reports: No Symptoms Hematology/Lymphatic: reports: No Symptoms Psychiatric: reports: No Symptoms Physical Exam - Maternity Vital Signs: Vital Signs Temperature 98.3 F 11/22/18 08:00 Pulse Rate 76 11/22/18 09:00 Respiratory Rate 18 11/22/18 09:00 Blood Pressure 125/77 11/22/18 09:00 O2 Sat by Pulse Oximetry (%) Constitutional: Yes: Well Nourished, No Distress, Calm Eyes: Yes: Conjunctiva Clear, EOM Intact HENT: Yes: Atraumatic Neck: Yes: Supple Cardiovascular: Yes: Regular Rate and Rhythm - Abdominal Exam/OB Fundal Height: 40 Number of Fetuses: Single Presentation: Vertex Contractions: Yes Regularity: Regular Intensity: Mod/Strong Heart Rate (range): 145 Category: I Accelerations: Uniform Decelerations: None - Vaginal Exam/OB Vaginal Bleediing: No Dilatation (cm): 6 Effacement (%): 1 Amniotic Membrane Status: Intact Presentation: Vertex/Position Station: -4 - Physical Exam Psychiatric: Yes: Alert, Oriented - Labs Lab Results: CBC, BMP 11/21/18 23:45 11/21/18 23:45 Problem List - Problems (1) Obesity affecting Code(s): O99.210 - OBESITY COMPLICATING , UNSPECIFIED TRIMESTER (2) Active labor at term Code(s): YOI1412 - (3) Edema during in third trimester Code(s): O12.03 - GESTATIONAL EDEMA, THIRD TRIMESTER Assessment/Plan 33 y/o P0 female with SIUP at 39.5 weeks, labor, edema PreEclampsia/HELLP labs normal except slightly elevated AST, UA pending, pt asymptomatic, will monitor BPs and await UA to determine if pt has pre eclampsia declines epidural GBS positive, on antibiotic prophylaxis continue expectant management for now for AROM at next check if head becomes well applied
[2018-11-22 10:54] LABS: HYALINE CASTS 45 /lpf (0-8); PH,URINE 5.5 (5.0-8.0); URINE APPEARANCE CLOUDY; URINE BACTERIA 773.5 /hpf (NEGATIVE); URINE BILIRUBIN NEGATIVE (NEGATIVE); URINE COLOR YELLOW; URINE GLUCOSE (UA) NEGATIVE (NEGATIVE); URINE KETONE 1+ (NEGATIVE); URINE LEUK ESTERASE 1+ (NEGATIVE); URINE NITRITE NEGATIVE (NEGATIVE); URINE PROTEIN NEGATIVE (NEGATIVE); URINE RBC 2 /hpf (0-4); URINE UROBILINOGEN 0.2 mg/dL (0.2-1.0); URINE WBC 72 /hpf (0-5)
--- NOTE | 2018-11-22 14:06 | PN ---
Ante-Partal Exam - Subjective Subjective: Pt seen/evaluated and doing well. Tolerating contractions. OOB in chair at this time. FHTs cat 1. Vital Signs: Vital Signs Temperature 98.0 F 11/22/18 12:00 Pulse Rate 85 11/22/18 13:00 Respiratory Rate 18 11/22/18 13:00 Blood Pressure 111/66 11/22/18 13:00 O2 Sat by Pulse Oximetry (%) Bleeding: No Headache: No Visual changes: No Right upper quadrant pain: No - Contractions Contractions: Yes Regularity: Regular Intensity: Mod/Strong - Exam during Labor Heart Rate: 135 Variability: Moderate Category: I Monitor Accelerations: Present Monitor Decelerations: None Exam: Vaginal Dilatation (cm): 7 Effacement (%): 100 Amniotic Membrane Status: Ruptured (AROM for clear fluid at this check) Presentation: Vertex Station: -1 - Assessment/Plan Assessment/Plan: 33 y/o P0 female with SIUP at 39.6 weeks, in labor edema, hELLP workup negative, no proteinuria, BPs wnl s/p AROM for clear fluid continue expectant management re evaluate in 2 hours
[2018-11-22] MEDS ORDERED: OXYTOCIN 20 UNITS in 0.9% NS 20 UNIT/1,000 ML INFUS.BAG IV ONE (14:09)
[2018-11-22] MEDS ORDERED: LIDOCAINE HCL 1% PRESERVATIVE FREE - 30ML VIAL ONE (14:09)
[2018-11-22] MEDS ORDERED: BUTORPHANOL TARTRATE 1 MG/ML VIAL IVPB ONE (14:27)
[2018-11-22] MEDS ORDERED: PROMETHAZINE HCL 25 MG/1 ML VIAL IVPUSH ONE (14:27)
--- NOTE | 2018-11-22 14:34 | PN ---
Ante-Partal Exam - Subjective Subjective: Pt feeling stronger contractions, tolerating them. Vital Signs: Vital Signs Temperature 98.2 F 11/22/18 14:00 Pulse Rate 74 11/22/18 14:00 Respiratory Rate 20 11/22/18 14:00 Blood Pressure 117/69 11/22/18 14:00 O2 Sat by Pulse Oximetry (%) Bleeding: No Headache: No Visual changes: No Right upper quadrant pain: No Pain (scale 1-10): 8 - Contractions Contractions: Yes Regularity: Regular Intensity: Strong - Exam during Labor Heart Rate: 135 Variability: Moderate Category: II Monitor Accelerations: Present Monitor Decelerations: Variable Exam: Vaginal Dilatation (cm): 7 Effacement (%): 100 Amniotic Membrane Status: Ruptured Amniotic Fluid: Clear Presentation: Vertex Station: -1 - Assessment/Plan Assessment/Plan: s/p arom regular contractions variable decelerations just started 10 minutes ago, will monitor if variables recurrent and no cervical change will discuss c section with patient
[2018-11-22] MEDS ORDERED: FENTANYL/BUPIVACAINE/NS/PF - PCEA - 50 ML DISP.SYRIN EP ONE ×2 (15:01→20:14)
[2018-11-22] MEDS: FENTANYL/BUPIVACAINE/NS/PF - PCEA - 50 ML DISP.SYRIN EP SCH (15:30)
[2018-11-22] MEDS ORDERED: NALOXONE HCL 0.4 MG/ML VIAL IVPUSH PRN (15:43)
[2018-11-22] MEDS: OXYTOCIN 30 UNITS in 0.9% NS 30 UNIT/500 ML INFUS.BAG IVPB SCH (19:30)
--- NOTE | 2018-11-22 19:30 | PN ---
Ante-Partal Exam - Subjective Subjective: Pt comfortable with epidural. Vital Signs: Vital Signs Temperature 97.7 F 11/22/18 18:00 Pulse Rate 90 11/22/18 18:45 Respiratory Rate 18 11/22/18 18:45 Blood Pressure 134/78 11/22/18 18:45 O2 Sat by Pulse Oximetry (%) 99 11/22/18 18:45 Bleeding: No Headache: No Visual changes: No Right upper quadrant pain: No - Contractions Contractions: Yes Regularity: Regular Intensity: Mod/Strong - Exam during Labor Heart Rate: 135 Variability: Moderate Category: I Monitor Accelerations: Present Monitor Decelerations: None Exam: Vaginal Dilatation (cm): 7 Effacement (%): 90 Amniotic Membrane Status: Ruptured Presentation: Vertex Station: -1 - Assessment/Plan Assessment/Plan: To start pitocin if no cervical change in 2 hours will plan for c section pt and mother aware recheck 2 hours
--- NOTE | 2018-11-22 21:39 | PN ---
Ante-Partal Exam - Subjective Subjective: Pt comfortable with contractions Vital Signs: Vital Signs Temperature 97.7 F 11/22/18 18:00 Pulse Rate 92 H 11/22/18 19:30 Respiratory Rate 20 11/22/18 19:30 Blood Pressure 133/98 11/22/18 19:30 O2 Sat by Pulse Oximetry (%) 99 11/22/18 19:30 Bleeding: No Headache: No Visual changes: No Right upper quadrant pain: No - Contractions Contractions: Yes Regularity: Regular Intensity: Mod/Strong - Exam during Labor Heart Rate: 135 Category: I Monitor Accelerations: Present Monitor Decelerations: None Exam: Vaginal Dilatation (cm): 7 Effacement (%): 90 Amniotic Membrane Status: Ruptured Presentation: Vertex Station: -1 - Assessment/Plan Assessment/Plan: No change in cevical dilation despite pitocin discussed delivery vs. continued observation with patient with mother and spouse in the room Plan for delivery discussed R/B/A with patient, pt agrees, informed consent obtained, questions answered nursery/anesthesia made aware
[2018-11-22] MEDS ORDERED: oxyCODONE HCL 5 MG TABLET PO PRN ×2 (22:04)
[2018-11-22] MEDS ORDERED: IBUPROFEN 800 MG/8 ML IJ IVPB PRN (22:04)
[2018-11-22] MEDS ORDERED: GENTAMICIN SO4 80 MG/2 ML VIAL ONE (22:56)
[2018-11-22] MEDS ORDERED: morphine SULFATE/PF 0.5 MG/ML (2cc Syringe - QUVA) EP ONE (23:04)
[2018-11-22] MEDS ORDERED: PHENYLEPHRINE HCL 10 MG/1 ML SINGLE DOSE VIAL ONE (23:17)
[2018-11-22] MEDS ORDERED: OXYTOCIN 10 UNITS/ML VIAL ONE (23:17)
[2018-11-22] MEDS ORDERED: KETOROLAC TROMETHAMINE 30 MG/1 ML VIAL ONE (23:17)
--- NOTE | 2018-11-22 23:40 | OP ---
Operative Note - Note: Operative Date: 11/22/18 Pre-Operative Diagnosis: failure to progress/arrest of dilation, SIUP at 39.6 weeks Operation: primary LTCS Findings: normal b/l tubes/ovaries live female Post-Operative Diagnosis: Same as Pre-op Surgeon: Pauline Simeon Clock Smith: Valentin Moon Anesthesiologist/STATION MECHANIC APPRENTICE: Rob Jean Anesthesia: Epidural Specimens Removed: placenta Estimated Blood Loss (mls): 700 Operative Report Dictated: Yes
[2018-11-23] MEDS ORDERED: OXYTOCIN 20 UNITS in 0.9% NS 20 UNIT/1,000 ML INFUS.BAG IV ONE (03:15)
[2018-11-23 07:40] LABS: BASO % 0.2 % (0-2.0); EOS % 0.2 % (0-4.5); HEMOGLOBIN 11.2 GM/dL (10.7-15.3); MCH 33.5 pg (25.7-33.7); MEAN CELL VOLUME 98.4 fl (80-96); MEAN PLT VOLUME 7.8 fl (7.5-11.1); MONO % 8.4 % (3.8-10.2); NEUT % 77.2 % (42.8-82.8); PLATELET COUNT 181 K/MM3 (134-434); RBC 3.35 M/mm3 (3.60-5.2); RDW 14.6 % (11.6-15.6); WHITE BLOOD COUNT 9.7 K/mm3 (4.0-10.0)
--- NOTE | 2018-11-23 09:07 | PN ---
Post Note - Post Date of Delivery: 11/22/18 Post Day: 1 Vital Signs: Vital Signs - 24 hr 11/22/18 11/22/18 11/22/18 10:00 11:00 12:00 Temperature 97.8 F 98.0 F Pulse Rate 75 80 77 Respiratory 18 18 18 Rate Blood Pressure 132/85 125/77 124/65 O2 Sat by Pulse Oximetry (%) 11/22/18 11/22/18 11/22/18 13:00 14:00 15:30 Temperature 98.2 F Pulse Rate 85 74 82 Respiratory 18 20 18 Rate Blood Pressure 111/66 117/69 126/81 O2 Sat by Pulse 100 Oximetry (%) 11/22/18 11/22/18 11/22/18 15:35 15:40 15:45 Temperature Pulse Rate 75 79 79 Respiratory 18 18 18 Rate Blood Pressure 132/84 135/85 133/81 O2 Sat by Pulse 100 100 100 Oximetry (%) 11/22/18 11/22/18 11/22/18 16:00 16:15 16:30 Temperature 98.0 F Pulse Rate 75 81 75 Respiratory 18 18 18 Rate Blood Pressure 137/78 127/78 131/78 O2 Sat by Pulse 99 99 100 Oximetry (%) 11/22/18 11/22/18 11/22/18 16:45 17:00 17:15 Temperature Pulse Rate 75 81 76 Respiratory 17 18 18 Rate Blood Pressure 139/88 138/91 135/85 O2 Sat by Pulse 100 100 100 Oximetry (%) 11/22/18 11/22/18 11/22/18 17:30 17:45 18:00 Temperature 97.7 F Pulse Rate 87 100 H 90 Respiratory 17 18 17 Rate Blood Pressure 135/96 101/85 127/89 O2 Sat by Pulse 100 100 100 Oximetry (%) 11/22/18 11/22/18 11/22/18 18:15 18:30 18:45 Temperature Pulse Rate 90 90 90 Respiratory 17 17 18 Rate Blood Pressure 122/73 131/85 134/78 O2 Sat by Pulse 99 100 99 Oximetry (%) 11/22/18 11/22/18 11/22/18 19:00 19:15 19:30 Temperature Pulse Rate 113 H 96 H 92 H Respiratory 20 20 20 Rate Blood Pressure 131/76 140/97 133/98 O2 Sat by Pulse 100 98 99 Oximetry (%) 11/22/18 11/22/18 11/22/18 19:45 20:00 20:15 Temperature Pulse Rate 97 H 98 H 95 H Respiratory 20 20 20 Rate Blood Pressure 115/80 121/80 122/87 O2 Sat by Pulse 100 100 100 Oximetry (%) 11/22/18 11/22/18 11/22/18 20:30 20:45 21:00 Temperature Pulse Rate 109 H 97 H 97 H Respiratory 20 20 20 Rate Blood Pressure 129/83 132/90 136/89 O2 Sat by Pulse 100 100 100 Oximetry (%) 11/22/18 11/22/18 11/22/18 21:15 21:30 21:45 Temperature Pulse Rate 95 H 98 H 111 H Respiratory 20 20 20 Rate Blood Pressure 134/81 143/87 131/74 O2 Sat by Pulse 100 100 100 Oximetry (%) 11/22/18 11/22/18 11/22/18 22:00 22:15 22:30 Temperature Pulse Rate 101 H 95 H 98 H Respiratory 20 20 20 Rate Blood Pressure 132/89 134/81 143/87 O2 Sat by Pulse 100 100 100 Oximetry (%) 11/23/18 11/23/18 11/23/18 00:30 00:45 04:00 Temperature 98.1 F 98.4 F Pulse Rate 76 84 98 H Respiratory 20 20 18 Rate Blood Pressure 116/81 123/76 113/68 O2 Sat by Pulse 100 100 99 Oximetry (%) 11/23/18 11/23/18 05:00 06:00 Temperature 98 F Pulse Rate 104 H Respiratory 18 18 Rate Blood Pressure 114/65 O2 Sat by Pulse Oximetry (%) Labs: Laboratory Results - last 24 hr 11/21/18 11/22/18 11/23/18 23:45 10:00 07:05 WBC 9.7 RBC 3.35 L Hgb 11.2 Hct 33.0 MCV 98.4 H MCH 33.5 MCHC 34.0 RDW 14.6 Plt Count 181 MPV 7.8 Absolute Neuts (auto) 7.5 Neutrophils % 77.2 Lymphocytes % 14.0 Monocytes % 8.4 Eosinophils % 0.2 Basophils % 0.2 Nucleated RBC % 0 Urine Color Yellow Urine Appearance Cloudy Urine pH 5.5 Ur Specific [place] 1.010 Urine Protein Negative Urine Glucose (UA) Negative Urine Ketones 1+ H Urine Blood 2+ H Urine Nitrite Negative Urine Bilirubin Negative Urine Urobilinogen 0.2 Ur Leukocyte Esterase 1+ H Urine WBC (Auto) 72 Urine RBC (Auto) 2 Urine Casts (Auto) 45 U Pathogenic Cast Auto None seen U Epithel Cells (Auto) 5.0 Urine Bacteria (Auto) 773.5 RPR Titer Nonreactive - Subjective Subjective: No Complaints, No Nausea or vomiting - Objective Afebrile: Yes Breast: Not engorged Abdomen: Soft, Non-tender, Other (dressing dry & intact) Uterus: Fundus firm Vagina: Scant lochia Extremities: Non-tender - Assessment/Plan (1) S/P primary low transverse Assessment: Other (POD1) Plan: Routine Care
[2018-11-23] MEDS: FERROUS SO4 325 MG TABLET (FP) PO SCH ×2 (09:31→22:14)
[2018-11-23] MEDS: ENOXAPARIN NA (PORCINE) 40 MG/0.4 ML DISP.SYRIN SQ SCH (09:31)
[2018-11-23] MEDS: IBUPROFEN 600 MG TABLET (FP) PO PRN (12:44)
[2018-11-23] MEDS: ACETAMINOPHEN 325 MG TABLET (FP) PO PRN (12:45)
--- NOTE | 2018-11-23 13:28 | PN ---
Progress Note (short form) - Note Progress Note: Anesthesia POD#1 S/P under Epidural anesthesia VSS,no N/V,pain is bearable,ambulating well. Epidural site is clean,no redness. Ele Steel MD.
[2018-11-23] MEDS: OXYTOCIN 20 UNITS in 0.9% NS 20 UNIT/1,000 ML INFUS.BAG IV SCH ×2 (20:48→22:15)
[2018-11-23] MEDS: CLINDAMYCIN 600MG PREMIX IVPB 600 MG/50 ML BAG IVPB SCH (20:48)
[2018-11-23] MEDS: OXYTOCIN 30 UNITS in 0.9% NS 30 UNIT/500 ML INFUS.BAG IVPB SCH (20:49)
[2018-11-23] MEDS: FENTANYL/BUPIVACAINE/NS/PF - PCEA - 50 ML DISP.SYRIN EP SCH (20:50)
[2018-11-23] MEDS ORDERED: BISACODYL 10 MG SUPP.RECT RC PRN (22:04)
[2018-11-24] MEDS: ACETAMINOPHEN 325 MG TABLET (FP) PO PRN ×3 (00:13→19:08)
[2018-11-24] MEDS: SIMETHICONE 80 MG TAB.CHEW (FP) PO PRN ×3 (00:14→19:08)
[2018-11-24] MEDS: IBUPROFEN 600 MG TABLET (FP) PO PRN ×3 (00:14→19:08)
[2018-11-24] MEDS: FERROUS SO4 325 MG TABLET (FP) PO SCH ×2 (09:01→21:23)
[2018-11-24] MEDS: ENOXAPARIN NA (PORCINE) 40 MG/0.4 ML DISP.SYRIN SQ SCH (09:02)
--- NOTE | 2018-11-24 10:13 | PN ---
Post Progress Note - Subjective Subjective: 33 yo Para 1 status post primary , seen and evaluated. She c/o mild incision pain. Post Day: 2 Type of Delivery: Primary C/S Vital Signs: Vital Signs Temperature 98.5 F 11/24/18 09:00 Pulse Rate 82 11/24/18 09:00 Respiratory Rate 18 11/24/18 09:00 Blood Pressure 123/75 11/24/18 09:00 O2 Sat by Pulse Oximetry (%) 99 11/23/18 04:00 Breast Exam: Yes: Soft Uterus: Yes: Fundus @ umbilicus Incision: Yes: Dressing dry and intact Abdomen/GI: Yes: Abdomen soft Lochia: Yes: Rubra Lochia, amount: Small Extremities: Yes: Calves non-tender Activity: Ambulating - Labs Labs: CBC WBC 9.7 K/mm3 (4.0-10.0) 11/23/18 07:05 RBC 3.35 M/mm3 (3.60-5.2) L 11/23/18 07:05 Hgb 11.2 GM/dL (10.7-15.3) 11/23/18 07:05 Hct 33.0 % (32.4-45.2) 11/23/18 07:05 MCV 98.4 fl (80-96) H 11/23/18 07:05 MCH 33.5 pg (25.7-33.7) 11/23/18 07:05 MCHC 34.0 g/dl (32.0-36.0) 11/23/18 07:05 RDW 14.6 % (11.6-15.6) 11/23/18 07:05 Plt Count 181 K/MM3 (134-434) 11/23/18 07:05 MPV 7.8 fl (7.5-11.1) 11/23/18 07:05 Absolute Neuts (auto) 7.5 K/mm3 (1.5-8.0) 11/23/18 07:05 Neutrophils % 77.2 % (42.8-82.8) 11/23/18 07:05 Lymphocytes % 14.0 % (8-40) 11/23/18 07:05 Monocytes % 8.4 % (3.8-10.2) 11/23/18 07:05 Eosinophils % 0.2 % (0-4.5) 11/23/18 07:05 Basophils % 0.2 % (0-2.0) 11/23/18 07:05 Nucleated RBC % 0 % (0-0) 11/23/18 07:05 Assessment/Plan Status post primary low transverse Ambulation Analgesia as needed Continue close monitoring
[2018-11-25] MEDS: ACETAMINOPHEN 325 MG TABLET (FP) PO PRN ×2 (02:07→12:10)
[2018-11-25] MEDS: SIMETHICONE 80 MG TAB.CHEW (FP) PO PRN ×2 (02:07→12:10)
[2018-11-25] MEDS: IBUPROFEN 600 MG TABLET (FP) PO PRN ×2 (02:08→12:10)
--- NOTE | 2018-11-25 07:10 | PN ---
Progress Note (SOAP) - Subjective Chief Complaint: Pt found sittin in chair - Current Medications Current Medications: Active Medications Acetaminophen (Tylenol -) 650 mg PO Q4H PRN PRN Reason: FEVER Last Admin: 11/25/18 02:07 Dose: 650 mg Bisacodyl (Dulcolax Suppository -) 10 mg RC PRN PRN PRN Reason: CONSTIPATION Enoxaparin Sodium (Lovenox -) 40 mg SQ DAILY [facility] Last Admin: 11/24/18 09:02 Dose: 40 mg Ferrous Sulfate (Feosol -) 325 mg PO BID [facility] Last Admin: 11/24/18 21:23 Dose: 325 mg Ibuprofen (Motrin -) 600 mg PO Q4H PRN PRN Reason: PAIN LEVEL 1 - 3 Last Admin: 11/25/18 02:08 Dose: 600 mg Naloxone HCl (Narcan -) 0.4 mg IVPUSH PRN PRN PRN Reason: Sedation Oxycodone HCl (Roxicodone -) 5 mg PO Q4H PRN PRN Reason: PAIN LEVEL 4 - 6 Oxycodone HCl (Roxicodone -) 10 mg PO Q4H PRN PRN Reason: PAIN LEVEL 7 - 10 Simethicone (Mylicon -) 80 mg PO Q4H PRN PRN Reason: GAS Last Admin: 11/25/18 02:07 Dose: 80 mg - Objective Vital Signs: Vital Signs Temperature 98.9 F 11/24/18 21:42 Pulse Rate 79 11/24/18 21:42 Respiratory Rate 18 11/24/18 21:42 Blood Pressure 105/62 11/24/18 21:42 O2 Sat by Pulse Oximetry (%) 99 11/23/18 04:00 Constitutional: Yes: Well Nourished, No Distress, Obese Neck: Yes: WNL Gastrointestinal: Yes: WNL, Soft ....Post : Yes: Uterus firm, Uterus non-tender Breast(s): Yes: WNL Musculoskeletal: Yes: WNL Extremities: Yes: WNL Edema: Yes Edema: LLE: Trace, RLE: Trace Wound/Incision: Yes: Clean/Dry, Well Approximated, Sutures Intact Neurological: Yes: WNL, Alert, Oriented Labs Lab Results: CBC, BMP 11/21/18 23:45 Problem List - Problems (1) S/P primary low transverse Code(s): Z98.891 - HISTORY OF UTERINE SCAR FROM PREVIOUS SURGERY Assessment/Plan POD3 stable Plan Continue presemt management OOB
[2018-11-25 07:26] LABS: BASO % 0.2 % (0-2.0); EOS % 1.9 % (0-4.5); HEMATOCRIT 29.2 % (32.4-45.2); HEMOGLOBIN 9.8 GM/dL (10.7-15.3); LYMPH % 14.4 % (8-40); MCH 33.2 pg (25.7-33.7); MCHC 33.5 g/dl (32.0-36.0); MEAN CELL VOLUME 98.9 fl (80-96); MEAN PLT VOLUME 7.3 fl (7.5-11.1); MONO % 12.7 % (3.8-10.2); NEUT % 70.8 % (42.8-82.8); PLATELET COUNT 187 K/MM3 (134-434); RBC 2.95 M/mm3 (3.60-5.2); RDW 14.5 % (11.6-15.6); WHITE BLOOD COUNT 8.1 K/mm3 (4.0-10.0)
[2018-11-25] MEDS: ENOXAPARIN NA (PORCINE) 40 MG/0.4 ML DISP.SYRIN SQ SCH (09:39)
[2018-11-25] MEDS: FERROUS SO4 325 MG TABLET (FP) PO SCH ×2 (09:39→21:57)
[2018-11-26] MEDS: IBUPROFEN 600 MG TABLET (FP) PO PRN (08:28)
[2018-11-26] MEDS: ACETAMINOPHEN 325 MG TABLET (FP) PO PRN (08:30)
[2018-11-26 09:04] VITALS: BP 122/68; PULSE 88; TEMP 98.4
[2018-11-26] MEDS: ENOXAPARIN NA (PORCINE) 40 MG/0.4 ML DISP.SYRIN SQ SCH (09:09)
[2018-11-26] MEDS: FERROUS SO4 325 MG TABLET (FP) PO SCH (09:09)
--- NOTE | 2018-11-26 09:20 | DS ---
Physical Exam-PORCELAIN TURNER Vital Signs: Vital Signs Temperature 98.4 F 11/26/18 09:03 Pulse Rate 88 11/26/18 09:03 Respiratory Rate 18 11/26/18 09:03 Blood Pressure 122/68 11/26/18 09:03 O2 Sat by Pulse Oximetry (%) 99 11/23/18 04:00 Labs: CBC, BMP 11/25/18 06:50 11/21/18 23:45 Delivery - Delivery Section: Primary, Low Flap Transverse Type of Anesthesia: Epidural EBL (cc): 500 Delivery, Single - Stages of Labor Date 1st Stage Initiatied: 11/21/18 Time 1st Stage Initiated: 20:20 Date 2nd Stage Initiated: 11/22/18 Time 2nd Stage Initiated: 00:30 Date of Delivery: 11/22/18 Time of Delivery: 23:04 Time Placenta Delivered: 23:05 - Condition of Infant Art Therapy Certified Supervisor/Ad Operations Specialist Present: Yes Name: Haley Viveros Infant Gender: Female Weight: 8 lb 9 oz Position: Left, OA Total Hours ROM (Hrs/Mins): 10 HOURS/34MINUTES - 1 Minute Total Score: 9 5 Minutes Total Score: 9 - Feeding Plan Initial Plan: Elected not to breastfeed exclusively throughout hospitalization Discharge Summary Reason For Visit: LABOR ADMIT Current Active Problems Active labor at term (Acute) Edema during in third trimester (Acute) Obesity affecting (Acute) S/P primary low transverse (Acute) Hospital Course: Pt admitted on 11/21/18 in labor. Underwent primary delivery for arrest of dilation on 11/22/18. She had a post /post op course complicated only by post op anemia. Pt was asymptomatic and started on Oral Iron. She was discharged home on post op day 4 in stable condition. Condition: Good - Instructions Diet, Activity, Other Instructions: Physical activity Resume your normal everyday activity as tolerated no heavy lifting or exercise until seen by your surgeon. You may walk unlimited renata of and climb stairs. You may resume driving the car when you feel safe and comfortable behind the wheel. No sexual activity as instructed. Wound care If you have a bandage, leave it on, and keep dry for 48-72 hours. After that time discard the outer bandage. If they are tapes on the skin under the out of bandage leave them in place. They will peel off in the next 7 to 10 days. Do Not Peel them off. You may shower the day after surgery. If there are tapes present on the skin, you may shower over them. Diet There are no dietary restrictions. Eat healthy, high-fiber foods. Drink 6 to 8 glasses of liquid each day. This will assist in keeping your bowels are regular. Pain management You may take Tylenol or acetaminophen or Ibuprofen (for example, Motrin, Advil etc.) from my pain prescription medication is ordered should be taken as prescribed for moderate to severe pain. Call MD for any of the following: Severe pain not relieved by medication Fever of 101 or higher Excessive bleeding or drainage on dressing Inability to urinate Disposition: HOME - Home Medications Comprehensive Discharge Medication List: Ambulatory Orders Pnv No.95/Ferrous Fum/Folic AC [ Vitamin Tablet] 1 each PO DAILY Ibuprofen [Motrin -] 600 mg PO QID #28 tablet 11/26/18
--- NOTE | 2018-11-27 18:26 | PATH ---
Surgical Pathology Report Patient Name: FORREST CASTILLO Med. Rec. #: [id number] /Age/Gender: 1985 (Age: 33) / F Account: [id number] Location: [facility] OBS/TUBE PUSHER Taken: 11/22/2018 Received: 11/23/2018 Reported: 11/27/2018 Physicians: Pauline Simeon M.D. Specimen(s) Received PLACENTA Clinical History , 39.5 weeks, failure to progress Final Diagnosis PLACENTA, SECTION: 628 G THIRD TRIMESTER PLACENTA WITH TRIVASCULAR UMBILICAL CORD AND UNREMARKABLE PLACENTAL MEMBRANES. Electronically Signed Mery George M.D. Gross Description The specimen is received fresh labeled placenta and is a 628 gram, 15.0 x 14.0 x 4.3 cm. placenta with attached membranes and umbilical cord. The attached membranes are navarro, translucent with focal opacities and insert marginally. The umbilical cord measures 33 cm. in length and averages 1.1 cm. in diameter. The cord inserts at the margin. No true knots or strictures are identified. Cut surface of the umbilical cord reveals 3 vessels. The surface is dick blue with abundant fibrin deposition and appropriate caliber vessels. The maternal surface is red-brown with focal defects. Sectioning reveals red-brown, spongy parenchyma. No lesions are identified. Fiscal Specialist sections are submitted in three cassettes as follows: 1- membrane rolls and umbilical cord; 2-3- full thickness sections of placenta. /11/26/2018 [facility]11/26/2018
== END 2018-11-26 13:50 | disposition home or self-care (01) | DRG 788 ==
LOC: JDEL 20:36 → JLDR 23:15 → J3W 11-23 03:20
PROVIDERS: ADMIT Obstetrics & Gynecology; ATTEND Obstetrics & Gynecology
PROC: 10D00Z1 Extraction of Products of Conception, Low, Open Approach (ICD-10-PCS; principal; 2018-11-22)
DX: O62.0 Primary inadequate contractions (principal); O99.824 Streptococcus B carrier state complicating childbirth; O90.81 Anemia of the puerperium; O99.214 Obesity complicating childbirth; E66.8 Other obesity; Z3A.39 39 weeks gestation of pregnancy; Z37.0 Single live birth
CPT/HCPCS: 36415; 80048; 81003; 84450; 84460; 84550; 85025; 85610; 85730; 86593; 86850; 86900; 86901; 88307-TC

== ENCOUNTER 2019-06-08 18:58 | Emergency (ER) | payer BC ==
[2019-06-08] MEDS ORDERED: ONDANSETRON *ODT* 4 MG TABLET SL ONE (19:12)
--- NOTE | 2019-06-08 19:13 | PDOC ---
Rapid Medical Evaluation Chief Complaint: Pain Time Seen by Provider: 06/08/19 19:11 Medical Evaluation: Allergies Allergy/AdvReac Type Severity Reaction Status Date / Time Penicillins Allergy Mild "SKIN Verified 11/06/18 10:34 PEELS". 06/08/19 19:12 Pt c/o: n/v/d since this am, no sick contacts, no specific abd pain Pt on brief exam: vss, no abd tenderness pt ordered for: zofran sl, urine pt to proceed to the ED Discharge Disposition - Diagnosis Nausea & vomiting - Referrals - Patient Instructions - Post Discharge Activity
[2019-06-08] MEDS ORDERED: ONDANSETRON *ODT* 4 MG TABLET ONE (19:32)
[2019-06-08 19:38] VITALS: TEMP 98.4; BMI 41.5
[2019-06-08] MEDS ORDERED: ONDANSETRON 4 MG/2 ML VIAL IVPB ONE (19:49)
[2019-06-08] MEDS ORDERED: SODIUM CHLORIDE 1,000 ML IV STA ×2 (19:49→21:36)
[2019-06-08] MEDS ORDERED: FAMOTIDINE 20 MG/50 ML IVPB 20 MG/50 ML MG IVPB ONE ×2 (19:49→20:14)
--- NOTE | 2019-06-08 19:49 | PDOC ---
History of Present Illness - General Chief Complaint: Pain Stated Complaint: ABDOMINAL PAIN Time Seen by Provider: 06/08/19 19:11 History Source: Patient - History of Present Illness Initial Comments: 06/08/19 19:46 33 year old female with nausea, vomiting, diarrhea and generalized abdominal pain. patient reports having mc donhortencia last night. denies sick contact. patient reports drinking alcohol this weekend History gastritis. , Past History - Past Medical History Allergies/Adverse Reactions: Allergies Allergy/AdvReac Type Severity Reaction Status Date / Time Penicillins Allergy Mild "SKIN Verified 06/08/19 19:14 PEELS". Home Medications: Ambulatory Orders Pnv No.95/Ferrous Fum/Folic AC [ Vitamin Tablet] 1 each PO DAILY Ibuprofen [Motrin -] 600 mg PO QID #28 tablet 11/26/18 Ondansetron [Zofran *Odt*] 4 mg SL BID #7 od.tablet 06/09/19 Asthma: No Cancer: No Cardiac Disorders: No CVA: No COPD: No DVT: No Diabetes: No GI Disorders: Yes (GASTRITIS) HTN: No Seizures: No Thyroid Disease: No - Reproductive History (#): 1 Para: 0 Therapeutic (s) & number: No Spontaneous : 0 - Psycho Social/Smoking Cessation Hx Smoking History: Never smoked Have you smoked in the past 12 months: Yes Information on smoking cessation initiated: No Hx Alcohol Use: No Drug/Substance Use Hx: No Substance Use Type: None Hx Substance Use Treatment: No Abd/GI Specific PMHX - Complaint Specific PMHX Colitis: No Diverticulitis: No Gall Bladder Disease: No GERD: No Hepatitis: No Irritable Bowel Synd (IBS): No Pancreatitis: No GI Ulcer Disease: No Review of Systems - Review of Systems Able to Perform ROS?: Yes Is the patient limited Israeli proficient: No ABD/GI: Yes: Diarrhea, Nausea, Vomiting, Abdominal cramping *Physical Exam - Vital Signs Last Vital Signs Temp Pulse Resp BP Pulse Ox 98.4 F 64 18 108/82 100 06/08/19 19:11 06/08/19 19:11 06/08/19 19:11 06/08/19 19:11 06/08/19 19:11 - Physical Exam General Appearance: Yes: Appropriately Dressed, Moderate Distress Respiratory/Chest: positive: Lungs Clear, Normal Breath Sounds Cardiovascular: positive: Regular Rhythm, Regular Rate Gastrointestinal/Abdominal: positive: Normal Bowel Sounds, Tender (generalized. ), Soft Extremity: positive: Normal Capillary Refill, Normal Inspection Integumentary: positive: Normal Color, Warm, Other (dry lips) Neurologic: positive: Fully Oriented, Alert ED Treatment Course - LABORATORY CBC & Chemistry Diagram: 06/08/19 20:14 06/08/19 20:14 - Medications Given in the ED: ED Medications Discontinued Medications Generic Name Dose Route Start Last Admin Trade Name Wendy PRN Reason Stop Dose Admin Ondansetron HCl 4 mg 06/08/19 19:12 06/08/19 19:35 Zofran Odt - SL 06/08/19 19:13 4 mg ONCE ONE Administration ED Progress Note - Progress Note Progress Note: 06/08/19 20:39 A: gastroenteriitis/ elevated lipase P : zofran IVF pepcid 06/09/19 00:18 Medical Decision Making - Medical Decision Making 06/08/19 23:03 Patient is now tolerating water and ice chips. Denies any abdominal pain at this time. Patient has a primary care physician at [facility]. Reports several episodes of similar symptoms could be related to marijuana use. Lipase elevated. Patient will be given referral to GI for prompt follow-up and strict return precautions. Strict return precautions were reviewed with patient in person, verbalized understanding Discharge - Discharge Information Problems reviewed: Yes Clinical Impression/Diagnosis: Elevated lipase Gastritis Qualifiers: Gastritis type: unspecified gastritis Chronicity: acute Gastritis bleeding: without bleeding Qualified Code(s): K29.00 - Acute gastritis without bleeding Vomiting Qualifiers: Vomiting type: unspecified Vomiting Intractability: unspecified Nausea presence : with nausea Qualified Code(s): R11.2 - Nausea with vomiting, unspecified Disposition: HOME - Additional Discharge Information Prescriptions: Ondansetron [Zofran *Odt*] 4 mg SL BID #7 od.tablet - Follow up/Referral Referrals: Diego Pereira MD [Staff Physician] - Call tomorrow Joey Chowdhury MD [Staff Physician] - Call tomorrow - Patient Discharge Instructions Patient Printed Discharge Instructions: DI for Gastritis Additional Instructions: Drink plenty of fluids start a BRAT ( bananas, rice apples toast) follow up with your doctor/GI doctor as soon as possible. A referral for gastroenterology was given to you today return to the ER if symptoms worsen - Post Discharge Activity Work/Back to School Note: Back to Work
[2019-06-08] MEDS ORDERED: ONDANSETRON 4 MG/2 ML VIAL ONE (20:13)
[2019-06-08] MEDS ORDERED: METOCLOPRAMIDE HCL INJECTION 10 MG/2 ML VIAL IVPB ONE (20:32)
[2019-06-08 20:39] LABS: BASO % 0.3 % (0-2.0); HEMATOCRIT 40.9 % (32.4-45.2); LYMPH % 7.1 % (8-40); MCH 32.6 pg (25.7-33.7); MCHC 34.1 g/dl (32.0-36.0); MEAN CELL VOLUME 95.5 fl (80-96); MEAN PLT VOLUME 7.1 fl (7.5-11.1); MONO % 4.1 % (3.8-10.2); NEUT % 88.5 % (42.8-82.8); PLATELET COUNT 270 K/MM3 (134-434); RBC 4.28 M/mm3 (3.60-5.2); WHITE BLOOD COUNT 9.9 K/mm3 (4.0-10.0)
[2019-06-08] MEDS ORDERED: SUCRALFATE 1 GM TABLET (FP) PO ONE (20:45)
[2019-06-08 21:14] LABS: ALBUMIN 4.7 g/dl (3.4-5.0); BILIRUBIN,TOTAL 0.4 mg/dL (0.2-1); BLOOD UREA NITROGEN 7.9 mg/dL (7-18); CALCIUM 9.8 mg/dL (8.5-10.1); CREATININE 0.8 mg/dL (0.55-1.3); MAGNESIUM 1.8 mg/dL (1.8-2.4); POTASSIUM 4.6 mmol/L (3.5-5.1); TOT PROT 7.8 g/dl (6.4-8.2)
[2019-06-08] MEDS ORDERED: METOCLOPRAMIDE HCL INJECTION 10 MG/2 ML VIAL ONE (21:31)
[2019-06-08] MEDS ORDERED: morphine CARPU-JECT 4 MG/1 ML DISP.SYRIN IVPUSH ONE (21:36)
[2019-06-08] MEDS ORDERED: morphine SULFATE 4 MG/ML VIAL ONE (21:42)
[2019-06-08] MEDS ORDERED: SUCRALFATE 1 GM TABLET (FP) ONE (21:43)
[2019-06-08] MEDS ORDERED: SODIUM CHLORIDE 1,000 ML IV SCH (21:45)
[2019-06-08 22:22] LABS: EPI CELLS 16.3 /HPF (0-5/HPF); HYALINE CASTS 24 /lpf (0-8); PH,URINE >= 9.0 (5.0-8.0); URINE APPEARANCE CLOUDY; URINE BACTERIA 633.4 /hpf (NEGATIVE); URINE BILIRUBIN NEGATIVE (NEGATIVE); URINE COLOR YELLOW; URINE GLUCOSE (UA) NEGATIVE (NEGATIVE); URINE KETONE 1+ (NEGATIVE); URINE LEUK ESTERASE NEGATIVE (NEGATIVE); URINE NITRITE NEGATIVE (NEGATIVE); URINE PROTEIN 1+ (NEGATIVE); URINE RBC 2 /hpf (0-4); URINE UROBILINOGEN 0.2 mg/dL (0.2-1.0); URINE WBC 3 /hpf (0-5)
[2019-06-09 01:02] VITALS: BP 118/83; PULSE 61
== END 2019-06-09 00:35 | disposition home or self-care (01) ==
LOC: JER 18:58
PROC: 3E033GC Introduction of Other Therapeutic Substance into Peripheral Vein, Percutaneous Approach (ICD-10-PCS; principal; 2019-06-08)
PROC: 3E033GC Introduction of Other Therapeutic Substance into Peripheral Vein, Percutaneous Approach (ICD-10-PCS; 2019-06-08)
PROC: 3E033NZ Introduction of Analgesics, Hypnotics, Sedatives into Peripheral Vein, Percutaneous Approach (ICD-10-PCS; 2019-06-08)
DX: K29.70 Gastritis, unspecified, without bleeding (principal); R74.8 Abnormal levels of other serum enzymes; E66.01 Morbid (severe) obesity due to excess calories; Z68.41 Body mass index [BMI] 40.0-44.9, adult
CPT/HCPCS: 36415; 76705-TC; 80053; 81003; 83690; 83735; 84703; 85025; 99285-25; J7030; Q0162

== ENCOUNTER 2020-03-04 22:20 | Inpatient (IN) | payer BC ==
[2020-03-04 22:28] VITALS: BMI 40.2
[2020-03-04] MEDS ORDERED: LACTATED RINGERS SOLUTION 1,000 ML IV STA (22:33)
[2020-03-04] MEDS ORDERED: FAMOTIDINE 20 MG/50 ML IVPB 20 MG/50 ML MG IVPB ONE ×2 (23:04→23:50)
[2020-03-04] MEDS ORDERED: ONDANSETRON 4 MG/2 ML VIAL IVPUSH ONE (23:04)
[2020-03-04] MEDS ORDERED: ACETAMINOPHEN 1000 MG/100 ML VIAL (NON FORMULARY) IVPB ONE (23:04)
[2020-03-04 23:45] LABS: BASO % 0.3 % (0-2.0); HEMATOCRIT 36.7 % (32.4-45.2); HEMOGLOBIN 12.3 GM/dL (10.7-15.3); LYMPH % 7.9 % (8-40); MCH 31.7 pg (25.7-33.7); MCHC 33.6 g/dl (32.0-36.0); MEAN CELL VOLUME 94.4 fl (80-96); MEAN PLT VOLUME 7.2 fl (7.5-11.1); MONO % 3.1 % (3.8-10.2); NEUT % 88.7 % (42.8-82.8); PLATELET COUNT 256 K/MM3 (134-434); RBC 3.89 M/mm3 (3.60-5.2); RDW 13.4 % (11.6-15.6); WHITE BLOOD COUNT 7.4 K/mm3 (4.0-10.0)
[2020-03-04] MEDS ORDERED: ACETAMINOPHEN INJECTION 100 ML IVPB ONE (23:49)
[2020-03-04 23:53] LABS: CHLORIDE 113 mmol/L (98-107); POTASSIUM 3.6 mmol/L (3.5-5.1); SODIUM 143 mmol/L (136-145)
[2020-03-04 23:56] LABS: ALBUMIN 4.2 g/dl (3.4-5.0); ANION GAP 8 MMOL/L (8-16); BLOOD UREA NITROGEN 7.3 mg/dL (7-18); CALCIUM 9.2 mg/dL (8.5-10.1); CO2 22 mmol/L (21-32); LIPASE 145 U/L (73-393)
[2020-03-04 23:57] LABS: GLUCOSE,RANDOM 134 mg/dL (74-106)
[2020-03-04 23:59] LABS: CREATININE 0.8 mg/dL (0.55-1.3); SGOT/AST 16 U/L (15-37); SGPT/ALT 20 U/L (13-61)
[2020-03-05] MEDS ORDERED: ACETAMINOPHEN INJECTION 100 ML IVPB ONE
[2020-03-05 00:01] LABS: BILIRUBIN,TOTAL 0.3 mg/dL (0.2-1); TOT PROT 7.4 g/dl (6.4-8.2)
[2020-03-05 00:03] LABS: ALK PHOS 85 U/L (45-117)
[2020-03-05] MEDS ORDERED: SUCRALFATE 1 GM/10 ML UNIT DOSE CUPS PO ONE (01:37)
[2020-03-05] MEDS ORDERED: morphine CARPU-JECT 2 MG/1 ML DISP.SYRIN IVPUSH ONE (04:29)
[2020-03-05] MEDS ORDERED: MORPHINE SULFATE 2 MG/ML VIAL ONE (04:37)
[2020-03-05] MEDS ORDERED: ONDANSETRON 4 MG/2 ML VIAL IVPUSH PRN ×2 (06:30→18:36)
[2020-03-05] MEDS: INSULIN SLIDING SCALE (NOVOLOG) 1 VIAL SQ SCH ×3 (07:05→18:00)
[2020-03-05] MEDS: LACTATED RINGERS SOLUTION 1,000 ML IV SCH ×2 (08:48→17:39)
[2020-03-05] MEDS: ACETAMINOPHEN 1000 MG/100 ML VIAL (NON FORMULARY) IVPB PRN (08:50)
[2020-03-05] MEDS: ENOXAPARIN NA (PORCINE) 40 MG/0.4 ML DISP.SYRIN SQ SCH (09:00)
[2020-03-05] MEDS: PANTOPRAZOLE 40 MG TABLET PO SCH (09:07)
[2020-03-05 10:29] LABS: URINE APPEARANCE CLEAR; URINE BILIRUBIN NEGATIVE (NEGATIVE); URINE COLOR YELLOW; URINE GLUCOSE (UA) NEGATIVE (NEGATIVE); URINE KETONE 15 mg/dl (NEGATIVE)
[2020-03-05 10:30] LABS: EPI CELLS 62.4 /uL (0-25.1); HYALINE CASTS 5.3 /uL (0-3.1); PH,URINE 5.5 (5.0-8.0); URINE LEUK ESTERASE NEGATIVE (NEGATIVE); URINE NITRITE NEGATIVE (NEGATIVE); URINE PROTEIN TRACE (NEGATIVE); URINE RBC 4.6 /uL (0-23.9); URINE UROBILINOGEN 0.2 mg/dL (0.2-1.0); URINE WBC 7.9 /uL (0-25.8)
[2020-03-05 10:31] LABS: URINE BACTERIA 347.9 /uL (0-1359)
[2020-03-05 10:58] LABS: HEMATOCRIT 35.8 % (32.4-45.2); HEMOGLOBIN 11.9 GM/dL (10.7-15.3); MCH 31.3 pg (25.7-33.7); MCHC 33.3 g/dl (32.0-36.0); MEAN CELL VOLUME 93.9 fl (80-96); PLATELET COUNT 252 K/MM3 (134-434); RBC 3.81 M/mm3 (3.60-5.2); RDW 13.2 % (11.6-15.6); WHITE BLOOD COUNT 8.7 K/mm3 (4.0-10.0)
[2020-03-05 11:19] LABS: POTASSIUM 3.1 mmol/L (3.5-5.1)
[2020-03-05 11:21] LABS: CALCIUM 8.7 mg/dL (8.5-10.1)
[2020-03-05 11:22] LABS: BLOOD UREA NITROGEN 5.8 mg/dL (7-18); MAGNESIUM 1.9 mg/dL (1.8-2.4)
[2020-03-05 11:25] LABS: CREATININE 0.7 mg/dL (0.55-1.3); PHOSPHOROUS 2.4 mg/dL (2.5-4.9)
[2020-03-05] MEDS ORDERED: POTASSIUM CHLORIDE TABS 20 MEQ TABLET.ER (FP) PO ONE (12:22)
[2020-03-05] MEDS ORDERED: METOCLOPRAMIDE HCL INJECTION 10 MG/2 ML VIAL IVPUSH PRN (12:24)
[2020-03-05] MEDS ORDERED: KETOROLAC TROMETHAMINE 15 MG/ML VIAL IVPUSH ONE (13:03)
[2020-03-05] MEDS ORDERED: diazePAM 2 MG TABLET PO ONE (18:31)
[2020-03-06] MEDS: LACTATED RINGERS SOLUTION 1,000 ML IV SCH ×2 (01:25→09:19)
[2020-03-06] MEDS: ACETAMINOPHEN 1000 MG/100 ML VIAL (NON FORMULARY) IVPB PRN (04:29)
[2020-03-06 06:41] LABS: CALCIUM 8.5 mg/dL (8.5-10.1)
[2020-03-06 06:42] LABS: BLOOD UREA NITROGEN 7.8 mg/dL (7-18); MAGNESIUM 1.8 mg/dL (1.8-2.4)
[2020-03-06 06:45] LABS: CREATININE 0.8 mg/dL (0.55-1.3); PHOSPHOROUS 1.9 mg/dL (2.5-4.9)
[2020-03-06 06:59] LABS: POTASSIUM 2.9 mmol/L (3.5-5.1)
[2020-03-06] MEDS ORDERED: POTASSIUM CHLORIDE TABS 20 MEQ TABLET.ER (FP) PO ONE ×2 (07:01→09:15)
[2020-03-06] MEDS ORDERED: POTASSIUM PHOSPHATE 30 MM in DEXTROSE 5%-WATER - 500 ML IVPB ONE (07:10)
[2020-03-06] MEDS ORDERED: MAGNESIUM SULF 50% (8.12 MEQ/2 ML-1 GM VIAL) IVPB ONE (07:11)
[2020-03-06] MEDS: PANTOPRAZOLE 40 MG TABLET PO SCH (09:13)
[2020-03-06] MEDS: KCL 10 MEQ IVPB 10 MEQ/100 ML INFUS.BAG IVPB SCH ×3 (10:41→15:01)
[2020-03-06] MEDS ORDERED: NAPH,MB-DB/K PH,MBDB POWDER PACKET PO ONE (12:42)
[2020-03-06 14:38] VITALS: BP 114/50; PULSE 72; TEMP 99
[2020-03-06] MEDS: ENOXAPARIN NA (PORCINE) 40 MG/0.4 ML DISP.SYRIN SQ SCH (15:01)
== END 2020-03-06 15:10 | disposition home or self-care (01) | DRG 392 ==
LOC: JER 22:20 → JERBED 03-05 04:34 → J7W 03-05 08:24
PROVIDERS: ADMIT Internal Medicine; ATTEND Internal Medicine
DX: A08.4 Viral intestinal infection, unspecified (principal); J98.11 Atelectasis; Z68.41 Body mass index [BMI] 40.0-44.9, adult; E66.9 Obesity, unspecified; E87.6 Hypokalemia; Z88.0 Allergy status to penicillin; K29.70 Gastritis, unspecified, without bleeding; F12.90 Cannabis use, unspecified, uncomplicated
CPT/HCPCS: 36415; 74177-TC; 80048; 80053; 81003; 82962; 83036; 83605; 83690; 83735; 84100; 84484; 84703; 85025; 85027; 93005; 93010; 99285-25; C9803; J0131; Q9967; U0003

== ENCOUNTER 2020-11-19 13:09 | Emergency (ER) | payer BC ==
[2020-11-19 13:13] VITALS: BP 97/69; PULSE 92; TEMP 97; BMI 40.2
[2020-11-19] MEDS ORDERED: KETOROLAC TROMETHAMINE 30 MG/1 ML VIAL IM ONE (13:48)
[2020-11-19] MEDS ORDERED: KETOROLAC TROMETHAMINE 30 MG/1 ML VIAL ONE (13:50)
== END 2020-11-19 13:54 | disposition home or self-care (01) ==
LOC: JERFT 13:09
PROC: 3E0233Z Introduction of Anti-inflammatory into Muscle, Percutaneous Approach (ICD-10-PCS; principal; 2020-11-19)
DX: M54.5 Low back pain (principal)
CPT/HCPCS: 99283-25

== ENCOUNTER 2020-11-20 19:47 | Emergency (ER) | payer BC ==
[2020-11-20 20:01] VITALS: BP 126/82; PULSE 87; TEMP 97.7; BMI 49.0
[2020-11-20] MEDS ORDERED: ONDANSETRON 4 MG/2 ML VIAL IVPUSH ONE (21:48)
[2020-11-20] MEDS ORDERED: FAMOTIDINE 20 MG/50 ML IVPB 20 MG/50 ML MG IVPB ONE ×2 (21:48→22:02)
[2020-11-20] MEDS ORDERED: SODIUM CHLORIDE 0.9% 500 ML INFUS.BAG IV ONE (21:49)
[2020-11-20] MEDS ORDERED: METOCLOPRAMIDE HCL INJECTION 10 MG/2 ML VIAL ONE (21:53)
[2020-11-20] MEDS ORDERED: ONDANSETRON 4 MG/2 ML VIAL ONE (22:02)
[2020-11-20] MEDS ORDERED: KETOROLAC TROMETHAMINE 30 MG/1 ML VIAL IVPUSH ONE (23:28)
[2020-11-21] MEDS ORDERED: KETOROLAC TROMETHAMINE 30 MG/1 ML VIAL ONE (00:10)
[2020-11-21 00:57] LABS: BASO % 0.2 % (0-2.0); HEMATOCRIT 37.6 % (32.4-45.2); HEMOGLOBIN 12.9 GM/dL (10.7-15.3); LYMPH % 6.9 % (8-40); MCH 31.6 pg (25.7-33.7); MCHC 34.2 g/dl (32.0-36.0); MEAN CELL VOLUME 92.2 fl (80-96); MEAN PLT VOLUME 7.2 fl (7.5-11.1); MONO % 2.8 % (3.8-10.2); NEUT % 90.1 % (42.8-82.8); PLATELET COUNT 229 10^3/uL (134-434); RBC 4.08 M/mm3 (3.60-5.2); RDW 13.8 % (11.6-15.6); WHITE BLOOD COUNT 9.2 K/mm3 (4.0-10.0)
[2020-11-21 01:12] LABS: CHLORIDE 111 mmol/L (98-107); SODIUM 143 mmol/L (136-145)
[2020-11-21 01:14] LABS: ALBUMIN 4.4 g/dl (3.4-5.0); ANION GAP 11 MMOL/L (8-16); BLOOD UREA NITROGEN 10.2 mg/dL (7-18); CO2 22 mmol/L (21-32)
[2020-11-21 01:15] LABS: GLUCOSE,RANDOM 110 mg/dL (74-106)
[2020-11-21 01:17] LABS: SGOT/AST 25 U/L (15-37); SGPT/ALT 28 U/L (13-61)
[2020-11-21 01:19] LABS: BILIRUBIN,TOTAL 0.5 mg/dL (0.2-1); CREATININE 0.7 mg/dL (0.55-1.3); TOT PROT 7.4 g/dl (6.4-8.2)
[2020-11-21 01:20] LABS: ALK PHOS 95 U/L (45-117)
== END 2020-11-21 02:51 | disposition home or self-care (01) ==
LOC: JER 19:47
PROC: 3E033GC Introduction of Other Therapeutic Substance into Peripheral Vein, Percutaneous Approach (ICD-10-PCS; principal; 2020-11-20)
PROC: 3E0333Z Introduction of Anti-inflammatory into Peripheral Vein, Percutaneous Approach (ICD-10-PCS; 2020-11-20)
PROC: 3E033GC Introduction of Other Therapeutic Substance into Peripheral Vein, Percutaneous Approach (ICD-10-PCS; 2020-11-20)
PROC: 3E033GC Introduction of Other Therapeutic Substance into Peripheral Vein, Percutaneous Approach (ICD-10-PCS; 2020-11-20)
DX: R11.14 Bilious vomiting (principal)
CPT/HCPCS: 36415; 76705-TC; 80053; 82550; 82553; 84484; 84703; 85025; 86850; 86900; 86901; 93005; 93010; 99285-25